=== PATIENT | male | born 1970 | race Caucasian/White ===

== ENCOUNTER 2016-06-22 15:16 | Emergency (ER) | payer OTHER ==
[~2016-06-22] VITALS: Ht 170.2 cm; Wt 77.3 kg
[~2016-06-22 15:16] MED LIST: TRAM50TA4 PO
[2016-06-22 15:23] VITALS: BP 152/95
[2016-06-22] MEDS ORDERED: LORA2TAB2 PO (15:33)
[2016-06-22] MEDS ORDERED: LORazepam 2 MG/ML VIAL IM ONE (19:15)
== END 2016-06-22 19:50 | disposition home or self-care (01) ==
LOC: EMS 15:21
DX: F19.239 Other psychoactive substance dependence with withdrawal, unspecified (principal); F41.9 Anxiety disorder, unspecified
CPT/HCPCS: 96372; 99283; J2060

== ENCOUNTER 2016-09-19 20:14 | Emergency (ER) | payer OTHER ==
[~2016-09-19] VITALS: Ht 170.2 cm; Wt 77.3 kg
[~2016-09-19 20:14] MED LIST changes: +LORA2TAB2 PO
[2016-09-19] MEDS ORDERED: LORazepam 2 MG TABLET PO ONE (22:30)
[2016-09-19 23:40] VITALS: BP 131/81
== END 2016-09-19 23:41 | disposition home or self-care (01) ==
LOC: EMS 20:16
DX: Z76.0 Encounter for issue of repeat prescription (principal); F41.9 Anxiety disorder, unspecified
CPT/HCPCS: 99283

== ENCOUNTER 2016-10-07 19:20 | Emergency (ER) | payer OTHER ==
[~2016-10-07] VITALS: Ht 170.2 cm; Wt 77.3 kg
[2016-10-07 20:07] VITALS: BP 100/81
[2016-10-07] MEDS ORDERED: TraMADol HCL 50 MG TABLET PO ONE (20:15)
== END 2016-10-07 20:40 | disposition home or self-care (01) ==
LOC: EMS 19:22
DX: Z76.0 Encounter for issue of repeat prescription (principal)
CPT/HCPCS: 99283

== ENCOUNTER 2016-11-01 16:05 | Emergency (ER) | payer OTHER ==
[~2016-11-01] VITALS: Ht 170.2 cm; Wt 77.3 kg
[2016-11-01] MEDS ORDERED: HYDROCODONE/ACETAMINOPHEN 5-325 MG TABLET PO ONE (18:45)
[2016-11-01 19:45] VITALS: BP 138/79
== END 2016-11-01 19:47 | disposition home or self-care (01) ==
LOC: EMS 16:06
DX: Z76.0 Encounter for issue of repeat prescription (principal); G89.29 Other chronic pain; M79.7 Fibromyalgia
CPT/HCPCS: 99283

== ENCOUNTER 2016-12-15 23:06 | Emergency (ER) | payer OTHER ==
[~2016-12-15] VITALS: Ht 170.2 cm; Wt 80.0 kg
[2016-12-15 23:10] VITALS: BP 139/99
[2016-12-16] MEDS ORDERED: LORazepam 2 MG TABLET PO ONE
== END 2016-12-16 00:19 | disposition home or self-care (01) ==
LOC: EMS 23:08
DX: F41.9 Anxiety disorder, unspecified (principal); Z76.0 Encounter for issue of repeat prescription
CPT/HCPCS: 99284

== ENCOUNTER 2016-12-25 01:39 | Emergency (ER) | payer OTHER ==
[~2016-12-25] VITALS: Ht 170.2 cm; Wt 81.5 kg
[~2016-12-25 01:39] MED LIST changes: -TRAM50TA4 PO
[2016-12-25] MEDS ORDERED: TRAM50TA4 PO (01:48)
[2016-12-25] MEDS ORDERED: LORA2TAB2 PO (01:48)
[2016-12-25] MEDS ORDERED: TraMADol HCL 50 MG TABLET PO ONE (04:00)
[2016-12-25 04:20] VITALS: BP 130/78
== END 2016-12-25 04:26 | disposition home or self-care (01) ==
LOC: EMS 01:40
DX: Z76.0 Encounter for issue of repeat prescription (principal); M79.7 Fibromyalgia; F41.9 Anxiety disorder, unspecified
CPT/HCPCS: 99283

== ENCOUNTER 2016-12-27 15:25 | Emergency (ER) | payer OTHER ==
[~2016-12-27] VITALS: Ht 170.2 cm; Wt 77.6 kg
[~2016-12-27 15:25] MED LIST changes: +TRAM50TA4 PO
[2016-12-27 16:02] VITALS: BP 136/87
[2016-12-27] MEDS ORDERED: TraMADol HCL 50 MG TABLET PO ONE (16:15)
== END 2016-12-27 16:25 | disposition home or self-care (01) ==
LOC: EMS 15:30
DX: M79.7 Fibromyalgia (principal); F41.9 Anxiety disorder, unspecified; Z76.0 Encounter for issue of repeat prescription
CPT/HCPCS: 99282

== ENCOUNTER 2017-03-15 07:36 | Emergency (ER) | payer OTHER ==
[~2017-03-15] VITALS: Ht 170.2 cm; Wt 77.3 kg
[2017-03-15 08:16] VITALS: BP 144/91
[2017-03-15] MEDS ORDERED: TraMADol HCL 50 MG TABLET PO ONE (09:00)
== END 2017-03-15 09:17 | disposition home or self-care (01) ==
LOC: EMS 07:38
DX: Z76.0 Encounter for issue of repeat prescription (principal); G89.29 Other chronic pain; F41.9 Anxiety disorder, unspecified; M79.7 Fibromyalgia
CPT/HCPCS: 99282

== ENCOUNTER 2017-07-18 07:35 | Emergency (ER) | payer OTHER ==
[~2017-07-18] VITALS: Ht 170.2 cm; Wt 77.3 kg
[2017-07-18 08:59] VITALS: BP 146/98
[2017-07-18] MEDS ORDERED: TraMADol HCL 50 MG TABLET PO ONE (09:00)
== END 2017-07-18 09:28 | disposition home or self-care (01) ==
LOC: EMS 07:36
DX: Z76.0 Encounter for issue of repeat prescription (principal); G89.29 Other chronic pain; K59.00 Constipation, unspecified; R42 Dizziness and giddiness; M79.7 Fibromyalgia; Z79.899 Other long term (current) drug therapy
CPT/HCPCS: 99283

== ENCOUNTER 2017-11-05 22:59 | Emergency (ER) | payer OTHER ==
[~2017-11-05] VITALS: Ht 175.3 cm; Wt 77.3 kg
[2017-11-06] MEDS ORDERED: LORazepam 1 MG TABLET PO ONE (03:00)
[2017-11-06 03:49] VITALS: BP 135/87
== END 2017-11-06 04:06 | disposition home or self-care (01) ==
LOC: EMS 23:00
DX: F41.1 Generalized anxiety disorder (principal); Z76.0 Encounter for issue of repeat prescription; M79.7 Fibromyalgia
CPT/HCPCS: 99284

== ENCOUNTER 2019-03-12 14:53 | Emergency (ER) | payer OTHER ==
[~2019-03-12] VITALS: Ht 170.2 cm; Wt 77.3 kg
[~2019-03-12 14:53] MED LIST changes: +LORA-1001 PO; -LORA2TAB2 PO
[2019-03-12] MEDS ORDERED: ChlordiazePOXIDE HCL 25 MG CAPSULE PO ONE (17:45)
[2019-03-12 18:40] VITALS: BP 235/83
== END 2019-03-12 18:45 | disposition home or self-care (01) ==
LOC: EMS 14:54
DX: F10.239 Alcohol dependence with withdrawal, unspecified (principal); I10 Essential (primary) hypertension; M79.7 Fibromyalgia; F41.9 Anxiety disorder, unspecified; Y90.9 Presence of alcohol in blood, level not specified

== ENCOUNTER 2019-06-03 18:14 | Emergency (ER) | payer OTHER ==
[~2019-06-03] VITALS: Ht 170.2 cm; Wt 72.7 kg
[2019-06-03] MEDS ORDERED: SODIUM CHLORIDE 0.9% 1,000 ML IV ONE (20:30)
[2019-06-03 20:38] LABS: BASOPHILS % (AUTO) 0.4 % (0.0-2.0); EOSINOPHILS % (AUTO) 1.4 % (1.0-6.0); HEMATOCRIT 40.6 % (41-53); HEMOGLOBIN 13.9 g/dL (13.5-17.5); LYMPHOCYTES # (AUTO) 2.2 K/uL (1.0-4.8); LYMPHOCYTES % (AUTO) 29.1 % (22.0-44.0); MEAN CORPUSCULAR HEMOGLOBIN 30.5 pg (26.0-34.0); MEAN CORPUSCULAR HGB CONC 34.4 G/dL (31.0-37.0); MEAN CORPUSCULAR VOLUME 89 fL (80-100); MONOCYTES # (AUTO) 0.6 K/uL (0.1-1.0); MONOCYTES % (AUTO) 8.2 % (2.0-9.0); NEUTROPHILS # (AUTO) 4.5 K/uL (1.8-7.7); NEUTROPHILS % (AUTO) 60.9 % (40.0-70.0); PLATELET COUNT (AUTO) 337 K/uL (150-450); RED BLOOD CELL COUNT(AUTO) 4.57 MIL/uL (4.50-5.90); RED CELL DISTRIBUTION WIDTH 13.7 % (11.5-14.5)
[2019-06-03 21:00] LABS: ANION GAP 4 mmol/L (8-16); CALCIUM, TOTAL 8.3 mg/dL (8.8-10.5); CARBON DIOXIDE 32 mmol/L (22-29); CHLORIDE 108 mmol/L (98-107); CREATININE 1.07 mg/dL (0.60-1.30); GLOMERULAR FILTR. RATE CALC > 60 mL/min (>60); GLUCOSE,RANDOM 102 mg/dL (70-110); POTASSIUM 4.5 mmol/L (3.5-5.1); SODIUM SERUM 144 mmol/L (136-145); UREA NITROGEN, BLOOD 9 mg/dL (7-18)
[2019-06-03] MEDS ORDERED: ChlordiazePOXIDE HCL 25 MG CAPSULE PO ONE (21:00)
[2019-06-03 21:05] LABS: ALANINE AMINOTRANSFERASE 34 U/L (12-78); ALBUMIN 3.2 g/dL (3.4-5.0); ALKALINE PHOSPHATASE 69 U/L (46-116); ASPARTATE AMINOTRANSFERASE 24 U/L (15-37); BILIRUBIN,TOTAL 0.1 mg/dL (0.1-1.0); TOTAL PROTEIN, SERUM 5.7 g/dL (6.4-8.2)
[2019-06-03 21:30] VITALS: BP 131/80
== END 2019-06-03 22:26 | disposition home or self-care (01) ==
LOC: EMS 18:15
DX: F10.239 Alcohol dependence with withdrawal, unspecified (principal); F41.9 Anxiety disorder, unspecified; I10 Essential (primary) hypertension; Y90.0 Blood alcohol level of less than 20 mg/100 ml
CPT/HCPCS: 36415; 80053; 85025; 99283; G0480

== ENCOUNTER 2019-07-02 04:35 | Emergency (ER) | payer OTHER ==
[~2019-07-02] VITALS: Ht 170.2 cm; Wt 79.1 kg
[2019-07-02] MEDS ORDERED: LORA-1000 PO (05:04)
[2019-07-02] MEDS ORDERED: TRAM50TA4 PO (05:04)
[2019-07-02 06:54] VITALS: BP 133/75
[2019-07-02] MEDS ORDERED: LORazepam 1 MG TABLET PO ONE (07:15)
== END 2019-07-02 08:00 | disposition home or self-care (01) ==
LOC: EMS 04:40
DX: F41.9 Anxiety disorder, unspecified (principal); I10 Essential (primary) hypertension

== ENCOUNTER 2020-03-26 16:42 | Emergency (ER) | payer OTHER ==
[~2020-03-26] VITALS: Ht 167.6 cm; Wt 72.7 kg
[~2020-03-26 16:42] MED LIST changes: +LORA-1000 PO; -LORA-1001 PO
[2020-03-26 16:56] VITALS: BP 132/103
[2020-03-26] MEDS ORDERED: BUSP5TAB20 PO (17:01)
[2020-03-26] MEDS ORDERED: VENL50TA44 PO (17:01)
== END 2020-03-26 17:54 | disposition home or self-care (01) ==
LOC: EMS 16:42
DX: F41.9 Anxiety disorder, unspecified (principal); Z76.0 Encounter for issue of repeat prescription; I10 Essential (primary) hypertension; Z79.899 Other long term (current) drug therapy
CPT/HCPCS: Z7502

== ENCOUNTER 2020-05-21 18:00 | Emergency (ER) | payer OTHER ==
[~2020-05-21] VITALS: Ht 167.6 cm; Wt 68.2 kg
[~2020-05-21 18:00] MED LIST changes: +BUSP5TAB20 PO; -TRAM50TA4 PO; +VENL50TA44 PO
[2020-05-21] MEDS ORDERED: LORazepam 2 MG TABLET PO ONE (23:45)
[2020-05-22 03:21] LABS: INFLUENZA TYPE A NEGATIVE FOR TYPE A (NEGATIVE); INFLUENZA TYPE B NEGATIVE FOR TYPE B (NEGATIVE)
[2020-05-22 03:49] VITALS: BP 135/71
== END 2020-05-22 03:51 | disposition home or self-care (01) ==
LOC: EMS 18:00
DX: F41.9 Anxiety disorder, unspecified (principal); Z20.828 Contact with and (suspected) exposure to other viral communicable diseases; I10 Essential (primary) hypertension; Z79.899 Other long term (current) drug therapy
CPT/HCPCS: 87804; 99283; U0003

== ENCOUNTER 2020-06-07 21:19 | Emergency (ER) | payer OTHER ==
[~2020-06-07] VITALS: Ht 170.2 cm; Wt 72.7 kg
[2020-06-07 21:27] VITALS: BP 103/77
[2020-06-08] MEDS ORDERED: TraMADol HCL 50 MG TABLET PO ONE
== END 2020-06-08 00:23 | disposition home or self-care (01) ==
LOC: EMS 21:19
DX: M79.7 Fibromyalgia (principal); Z76.0 Encounter for issue of repeat prescription

== ENCOUNTER 2021-06-13 17:03 | Emergency (ER) | payer OTHER ==
[~2021-06-13] VITALS: Ht 170.2 cm; Wt 66.4 kg
[2021-06-13 17:45] VITALS: BP 162/99
== END 2021-06-13 20:30 | disposition left against medical advice (07) ==
LOC: EMS 17:07
DX: F10.239 Alcohol dependence with withdrawal, unspecified (principal); Z53.21 Procedure and treatment not carried out due to patient leaving prior to being seen by health care provider

== ENCOUNTER 2021-10-17 12:54 | Emergency (ER) | payer OTHER ==
[~2021-10-17] VITALS: Ht 170.2 cm; Wt 71.0 kg
[2021-10-17 12:55] VITALS: BP 144/99
[2021-10-17] MEDS ORDERED: AMIT-166 PO (12:59)
== END 2021-10-17 14:35 | disposition left against medical advice (07) ==
LOC: EMS 12:59
DX: Z53.21 Procedure and treatment not carried out due to patient leaving prior to being seen by health care provider (principal)

== ENCOUNTER 2021-12-20 12:39 | Inpatient (IN) | payer MEDICAID, OTHER ==
[~2021-12-20] VITALS: Ht 170.2 cm; Wt 62.6 kg
[~2021-12-20 12:39] MED LIST changes: +AMIT-166 PO; -LORA-1000 PO
[2021-12-20 14:29] LABS: BASOPHILS % (AUTO) 0.4 % (0.0-2.0); EOSINOPHILS % (AUTO) 0.4 % (1.0-6.0); HEMATOCRIT 40.5 % (41-53); LYMPHOCYTES % (AUTO) 15.1 % (22.0-44.0); MEAN CORPUSCULAR HEMOGLOBIN 30.6 pg (26.0-34.0); MEAN CORPUSCULAR HGB CONC 34.6 G/dL (31.0-37.0); MEAN CORPUSCULAR VOLUME 89 fL (80-100); MONOCYTES # (AUTO) 0.4 K/uL (0.1-1.0); MONOCYTES % (AUTO) 5.7 % (2.0-9.0); NEUTROPHILS % (AUTO) 78.4 % (40.0-70.0); PLATELET COUNT (AUTO) 349 K/uL (150-450); RED BLOOD CELL COUNT(AUTO) 4.57 MIL/uL (4.50-5.90); RED CELL DISTRIBUTION WIDTH 13.5 % (11.5-14.5)
[2021-12-20 14:39] LABS: ANION GAP 6 mmol/L (8-16); CALCIUM, TOTAL 9.2 mg/dL (8.8-10.5); CARBON DIOXIDE 30 mmol/L (22-29); CHLORIDE 99 mmol/L (98-107); CREATININE 0.88 mg/dL (0.60-1.30); GLUCOSE,RANDOM 101 mg/dL (70-110); POTASSIUM 4.9 mmol/L (3.5-5.1); SODIUM SERUM 135 mmol/L (136-145); UREA NITROGEN, BLOOD 15 mg/dL (7-18)
[2021-12-20 14:41] LABS: GLOMERULAR FILTR. RATE CALC > 60 mL/min (>60)
[2021-12-20 14:45] LABS: ALANINE AMINOTRANSFERASE 27 U/L (12-78); ALBUMIN 3.4 g/dL (3.4-5.0); ALKALINE PHOSPHATASE 108 U/L (46-116); ASPARTATE AMINOTRANSFERASE 17 U/L (15-37); BILIRUBIN,TOTAL 0.3 mg/dL (0.1-1.0); TOTAL PROTEIN, SERUM 7.3 g/dL (6.4-8.2)
[2021-12-20] MEDS ORDERED: ZOLPIDEM TARTRATE 10 MG TABLET PO PRN (15:00)
[2021-12-20] MEDS ORDERED: QUEtiapine FUMARATE 100 MG TABLET PO PRN (15:00)
[2021-12-20 18:52] LABS: COVID AG,FIA SOURCE NASAL SWAB
[2021-12-20 20:10] VITALS: BP 107/77
[2021-12-20] MEDS ORDERED: PNEUMOCOCCAL VACCINE POLYVALENT 0.5 ML VIAL [PPSV23] IM. ONE (22:15)
[2021-12-21] MEDS ORDERED: PETROLATUM,WHITE 28 GM JELLY TP PRN (06:00)
[2021-12-21] MEDS ORDERED: CloNIDine HCL 0.1 MG TABLET PO PRN (06:00)
[2021-12-21] MEDS ORDERED: GuaiFENesin/D-METHORPHAN [SUGAR-FREE] 200-20MG/10 ML SYRUP UDCUP PO PRN (06:00)
[2021-12-21] MEDS ORDERED: ACETAMINOPHEN 325 MG TABLET PO PRN (06:00)
[2021-12-21] MEDS ORDERED: IBUPROFEN 400 MG TABLET PO PRN (06:00)
[2021-12-21] MEDS ORDERED: LOPERAMIDE HCL 2 MG CAPSULE PO PRN (06:00)
[2021-12-21] MEDS ORDERED: ONDANSETRON HCL 4 MG TABLET PO PRN (06:00)
[2021-12-21] MEDS ORDERED: DOCUSATE SODIUM 100 MG CAPSULE PO PRN (06:00)
[2021-12-21] MEDS ORDERED: MAG HYDROX/AL HYDROX/SIMETH ES 30 ML SUSPENSION UDCUP PO PRN (06:00)
[2021-12-21] MEDS ORDERED: ALBUTEROL SULFATE HFA 90 MCG/PUFF 8 GM INHALER IH PRN (06:00)
[2021-12-21] MEDS ORDERED: NICOTINE 14 MG/24 HOUR PATCH TD PRN (06:00)
[2021-12-21] MEDS ORDERED: MAGNESIUM HYDROXIDE SUSPENSION 30 ML UDCUP PO PRN (06:00)
[2021-12-21 08:46] VITALS: BP 114/68
[2021-12-21] MEDS: LORazepam 1 MG TABLET PO PRN ×2 (10:21→17:06)
[2021-12-21] MEDS: VENLAFAXINE HCL 50 MG TABLET PO SCH (14:04)
[2021-12-21] MEDS: BusPIRone HCL 5 MG TABLET PO SCH (16:24)
[2021-12-21 17:00] VITALS: BP 135/88
[2021-12-22 08:43] VITALS: BP 135/85
[2021-12-22] MEDS: BusPIRone HCL 5 MG TABLET PO SCH ×2 (09:00→16:48)
[2021-12-22] MEDS: VENLAFAXINE HCL 50 MG TABLET PO SCH (09:25)
[2021-12-22] MEDS: LORazepam 1 MG TABLET PO PRN ×2 (09:32→17:33)
[2021-12-22 16:00] VITALS: BP 137/90
[2021-12-22 17:33] VITALS: BP 142/89
[2021-12-22] MEDS: RisperiDONE 1 MG TABLET PO SCH (20:44)
[2021-12-23 08:25] VITALS: BP 142/91
[2021-12-23] MEDS: VENLAFAXINE HCL 50 MG TABLET PO SCH (08:33)
[2021-12-23] MEDS: LORazepam 1 MG TABLET PO PRN ×3 (08:33→20:54)
[2021-12-23] MEDS: BusPIRone HCL 5 MG TABLET PO SCH ×2 (08:37→16:52)
[2021-12-23 16:19] VITALS: BP 115/73
[2021-12-23 20:38] VITALS: BP 125/73
[2021-12-23] MEDS: RisperiDONE 1 MG TABLET PO SCH (20:54)
[2021-12-24 08:00] VITALS: BP 110/66
[2021-12-24] MEDS: LORazepam 1 MG TABLET PO PRN ×2 (08:53→15:05)
[2021-12-24] MEDS: VENLAFAXINE HCL 50 MG TABLET PO SCH (08:56)
[2021-12-24] MEDS: BusPIRone HCL 5 MG TABLET PO SCH ×2 (09:00→16:51)
[2021-12-24] MEDS ORDERED: VENL-67 PO (12:36)
[2021-12-24] MEDS ORDERED: GABA-1181 PO (12:36)
[2021-12-24] MEDS ORDERED: CLON0.5T4 PO (12:36)
[2021-12-24] MEDS ORDERED: LORA-999 PO (12:36)
[2021-12-24] MEDS ORDERED: SILD100T71 PO (12:36)
[2021-12-24] MEDS ORDERED: AMIT25TA9 PO (12:36)
[2021-12-24 16:51] VITALS: BP 112/78
[2021-12-24] MEDS: RisperiDONE 1 MG TABLET PO SCH (20:18)
[2021-12-25 08:02] VITALS: BP 100/66
[2021-12-25] MEDS: BusPIRone HCL 5 MG TABLET PO SCH ×2 (08:33→16:53)
[2021-12-25] MEDS: VENLAFAXINE HCL 50 MG TABLET PO SCH (08:33)
[2021-12-25] MEDS: LORazepam 1 MG TABLET PO PRN ×3 (08:39→17:16)
[2021-12-25 14:36] LABS: COVID AG,FIA SOURCE NASAL SWAB
[2021-12-25 16:24] VITALS: BP 139/69
[2021-12-25] MEDS ORDERED: RISP1TAB48 PO ×2 (18:49→21:42)
[2021-12-25] MEDS ORDERED: VENL50TA44 PO ×2 (18:49→21:42)
[2021-12-25] MEDS: RisperiDONE 1 MG TABLET PO SCH (20:22)
[2021-12-25] MEDS ORDERED: BUSP5TAB20 PO (21:42)
[2021-12-26] MEDS: LORazepam 1 MG TABLET PO PRN (06:58)
[2021-12-26 09:01] VITALS: BP 121/107
== END 2021-12-26 08:30 | disposition home or self-care (01) | DRG 750 ==
LOC: EMS 12:42 → 3EI 21:09
PROVIDERS: ADMIT Psychiatry & Neurology Psychiatry; ATTEND Psychiatry & Neurology Psychiatry
DX: F25.1 Schizoaffective disorder, depressive type (principal); E87.1 Hypo-osmolality and hyponatremia; R45.851 Suicidal ideations; F15.10 Other stimulant abuse, uncomplicated; Z20.822 Contact with and (suspected) exposure to COVID-19; F41.9 Anxiety disorder, unspecified; I10 Essential (primary) hypertension; M79.7 Fibromyalgia; R45.850 Homicidal ideations; Z59.00 Homelessness unspecified; Z79.899 Other long term (current) drug therapy
CPT/HCPCS: 80053; 85025; 99285; G0480

== ENCOUNTER 2022-03-03 18:43 | Inpatient (IN) | payer MEDICAID ==
[~2022-03-03] VITALS: Ht 170.2 cm; Wt 66.3 kg
[~2022-03-03 18:43] MED LIST changes: -AMIT-166 PO; +RISP1TAB48 PO
[2022-03-03] MEDS ORDERED: LOPERAMIDE HCL 2 MG CAPSULE PO PRN (19:00)
[2022-03-03] MEDS ORDERED: TUBERCULIN, PURIFIED PROTEIN DERIVATIVE 5 TU/0.1 ML SYRINGE ID ONE (19:00)
[2022-03-03] MEDS ORDERED: MAG HYDROX/AL HYDROX/SIMETH ES 30 ML SUSPENSION UDCUP PO PRN (19:00)
[2022-03-03] MEDS ORDERED: PROMETHAZINE HCL 25 MG TABLET PO PRN (19:00)
[2022-03-03] MEDS ORDERED: ACETAMINOPHEN 325 MG TABLET PO PRN (19:00)
[2022-03-03] MEDS ORDERED: HydrOXYzine PAMOATE 50 MG CAPSULE PO PRN (19:00)
[2022-03-03] MEDS ORDERED: GuaiFENesin/D-METHORPHAN [SUGAR-FREE] 200-20MG/10 ML SYRUP UDCUP PO PRN (19:00)
[2022-03-03] MEDS ORDERED: OLANZapine 5 MG RAPDIS TABLET PO PRN (19:00)
[2022-03-03] MEDS ORDERED: MAGNESIUM HYDROXIDE SUSPENSION 30 ML UDCUP PO PRN (19:00)
[2022-03-03] MEDS ORDERED: INFLUENZA VIRUS VACCINE QVS 2022-23 (6MO+)/PF 60 MCG/0.5 ML SYRINGE IM. ONE (19:30)
[2022-03-03] MEDS ORDERED: PNEUMOCOCCAL VACCINE POLYVALENT 0.5 ML VIAL [PPSV23] IM. ONE (19:30)
[2022-03-03 19:36] LABS: GLUCOMETER DEV NAME(LOC) POC.BV
[2022-03-03 20:33] VITALS: BP 136/83
[2022-03-03] MEDS: GABAPENTIN 300 MG CAPSULE PO SCH (21:15)
[2022-03-03] MEDS: OLANZapine 5 MG RAPDIS TABLET PO SCH (21:15)
[2022-03-03] MEDS: MELATONIN 5 MG TABLET PO SCH (21:15)
[2022-03-03] MEDS: LORazepam 2 MG TABLET PO PRN (21:22)
[2022-03-04 07:13] LABS: EOSINOPHILS % (AUTO) 2.5 % (1.0-6.0); HEMATOCRIT 37.7 % (41-53); HEMOGLOBIN 12.6 g/dL (13.5-17.5); LYMPHOCYTES # (AUTO) 1.3 K/uL (1.0-4.8); LYMPHOCYTES % (AUTO) 32.7 % (22.0-44.0); MEAN CORPUSCULAR HEMOGLOBIN 30.3 pg (26.0-34.0); MEAN CORPUSCULAR HGB CONC 33.4 G/dL (31.0-37.0); MEAN CORPUSCULAR VOLUME 91 fL (80-100); MONOCYTES # (AUTO) 0.6 K/uL (0.1-1.0); MONOCYTES % (AUTO) 14.8 % (2.0-9.0); PLATELET COUNT (AUTO) 326 K/uL (150-450); RED BLOOD CELL COUNT(AUTO) 4.15 MIL/uL (4.50-5.90)
[2022-03-04 07:28] LABS: HEMOGLOBIN A1C 5.5 % (3.8-5.6)
[2022-03-04 07:37] LABS: ALANINE AMINOTRANSFERASE 28 U/L (12-78); ALKALINE PHOSPHATASE 80 U/L (46-116); ANION GAP 2 mmol/L (8-16); ASPARTATE AMINOTRANSFERASE 17 U/L (15-37); BILIRUBIN,TOTAL 0.2 mg/dL (0.1-1.0); CALCIUM, TOTAL 8.4 mg/dL (8.8-10.5); CARBON DIOXIDE 30 mmol/L (22-29); CHLORIDE 107 mmol/L (98-107); CHOL/HDL RATIO 2.6 (4.2-7.3); CHOLESTEROL 156 mg/dL (131-200); CREATININE 0.97 mg/dL (0.60-1.30); FREE T4 (FREE THYROXINE) 0.74 ng/dL (0.76-1.46); GLUCOSE,RANDOM 99 mg/dL (70-110); HDL CHOLESTEROL 59 mg/dL (40-60); LDL CHOL (CALC.) 82 mg/dL (0-130); POTASSIUM 3.9 mmol/L (3.5-5.1); SODIUM SERUM 139 mmol/L (136-145); THYROID STIMULATING HORMONE 1.36 uIU/mL (0.36-3.74); TRIGLYCERIDES 75 mg/dL (15-150); UREA NITROGEN, BLOOD 8 mg/dL (7-18)
[2022-03-04 07:47] LABS: GLOMERULAR FILTR. RATE CALC > 60 mL/min (>60)
[2022-03-04] MEDS: OMEGA-3/DHA/EPA/FISH OIL 1,000 MG CAPSULE PO SCH (08:17)
[2022-03-04] MEDS: NALTREXONE HCL 50 MG TABLET PO SCH (08:17)
[2022-03-04] MEDS: GABAPENTIN 300 MG CAPSULE PO SCH ×4 (08:17→20:19)
[2022-03-04] MEDS: FOLIC ACID 1 MG TABLET PO SCH (08:17)
[2022-03-04] MEDS: MULTIVITAMINS WITH MINERALS, THERAPEUTIC TABLET PO SCH (08:17)
[2022-03-04] MEDS: THIAMINE 100 MG TABLET PO SCH ×2 (08:18→16:19)
[2022-03-04 08:56] VITALS: BP 180/91
[2022-03-04] MEDS ORDERED: DULoxetine HCL 20 MG CAPSULE PO SCH (09:00)
[2022-03-04] MEDS ORDERED: PALIPERIDONE PALMITATE 234 MG/1.5 ML SYRINGE IM ONE (09:00)
[2022-03-04] MEDS: LORazepam 2 MG TABLET PO PRN ×2 (11:52→16:19)
[2022-03-04] MEDS: OLANZapine 5 MG RAPDIS TABLET PO SCH (20:19)
[2022-03-04] MEDS: MELATONIN 5 MG TABLET PO SCH (20:19)
[2022-03-04 20:37] VITALS: BP 133/92
[2022-03-05 08:32] VITALS: BP 109/76
[2022-03-05] MEDS: MULTIVITAMINS WITH MINERALS, THERAPEUTIC TABLET PO SCH (08:48)
[2022-03-05] MEDS: FOLIC ACID 1 MG TABLET PO SCH (08:48)
[2022-03-05] MEDS: THIAMINE 100 MG TABLET PO SCH ×2 (08:48→17:02)
[2022-03-05] MEDS: GABAPENTIN 300 MG CAPSULE PO SCH ×4 (08:48→20:10)
[2022-03-05] MEDS: OMEGA-3/DHA/EPA/FISH OIL 1,000 MG CAPSULE PO SCH (08:48)
[2022-03-05] MEDS: NALTREXONE HCL 50 MG TABLET PO SCH (08:48)
[2022-03-05] MEDS ORDERED: BuPROPion HCL XL 150 MG ER TABLET PO SCH (09:00)
[2022-03-05] MEDS: LORazepam 2 MG TABLET PO PRN (12:22)
[2022-03-05] MEDS: MELATONIN 5 MG TABLET PO SCH (20:10)
[2022-03-05] MEDS: OLANZapine 10 MG RAPDIS TABLET PO SCH (20:10)
[2022-03-05 20:27] VITALS: BP 110/61
[2022-03-06 08:14] VITALS: BP 131/78
[2022-03-06] MEDS ORDERED: BuPROPion HCL XL 150 MG ER TABLET PO SCH (09:00)
[2022-03-06] MEDS: FOLIC ACID 1 MG TABLET PO SCH (09:33)
[2022-03-06] MEDS: THIAMINE 100 MG TABLET PO SCH ×2 (09:34→16:27)
[2022-03-06] MEDS: MULTIVITAMINS WITH MINERALS, THERAPEUTIC TABLET PO SCH (09:34)
[2022-03-06] MEDS: GABAPENTIN 300 MG CAPSULE PO SCH ×2 (09:34→13:00)
[2022-03-06] MEDS: OMEGA-3/DHA/EPA/FISH OIL 1,000 MG CAPSULE PO SCH (09:34)
[2022-03-06] MEDS: NALTREXONE HCL 50 MG TABLET PO SCH (09:34)
[2022-03-06] MEDS: LORazepam 2 MG TABLET PO PRN ×2 (13:08→20:15)
[2022-03-06] MEDS: GABAPENTIN 400 MG CAPSULE PO SCH ×2 (16:26→20:12)
[2022-03-06] MEDS: MELATONIN 5 MG TABLET PO SCH (20:12)
[2022-03-06] MEDS: OLANZapine 10 MG RAPDIS TABLET PO SCH (20:12)
[2022-03-06 20:44] VITALS: BP 117/79
[2022-03-07 08:30] VITALS: BP 107/70
[2022-03-07] MEDS: MULTIVITAMINS WITH MINERALS, THERAPEUTIC TABLET PO SCH (09:05)
[2022-03-07] MEDS: THIAMINE 100 MG TABLET PO SCH ×2 (09:05→17:15)
[2022-03-07] MEDS: OMEGA-3/DHA/EPA/FISH OIL 1,000 MG CAPSULE PO SCH (09:05)
[2022-03-07] MEDS: BuPROPion HCL XL 150 MG ER TABLET PO SCH (09:06)
[2022-03-07] MEDS: GABAPENTIN 400 MG CAPSULE PO SCH ×2 (09:06→12:12)
[2022-03-07] MEDS: FOLIC ACID 1 MG TABLET PO SCH (09:06)
[2022-03-07] MEDS: NALTREXONE HCL 50 MG TABLET PO SCH (09:07)
[2022-03-07] MEDS: LORazepam 2 MG TABLET PO PRN (11:56)
[2022-03-07] MEDS ORDERED: GABAPENTIN 300 MG CAPSULE PO PRN (16:15)
[2022-03-07] MEDS: GABAPENTIN 100 MG CAPSULE PO SCH ×2 (17:15→21:54)
[2022-03-07] MEDS: MELATONIN 5 MG TABLET PO SCH (21:53)
[2022-03-07] MEDS: OLANZapine 10 MG RAPDIS TABLET PO SCH (21:53)
[2022-03-08] VITALS: BP 111/72
[2022-03-08] MEDS ORDERED: PALIPERIDONE PALMITATE 156 MG/ML SYRINGE IM ONE (09:00)
[2022-03-08 09:05] VITALS: BP 116/66
[2022-03-08] MEDS: FOLIC ACID 1 MG TABLET PO SCH (11:00)
[2022-03-08] MEDS: BuPROPion HCL XL 150 MG ER TABLET PO SCH (11:00)
[2022-03-08] MEDS: OMEGA-3/DHA/EPA/FISH OIL 1,000 MG CAPSULE PO SCH (11:00)
[2022-03-08] MEDS: MULTIVITAMINS WITH MINERALS, THERAPEUTIC TABLET PO SCH (11:01)
[2022-03-08] MEDS: THIAMINE 100 MG TABLET PO SCH ×2 (11:01→16:47)
[2022-03-08] MEDS: NALTREXONE HCL 50 MG TABLET PO SCH (11:01)
[2022-03-08] MEDS: GABAPENTIN 100 MG CAPSULE PO SCH ×4 (11:01→20:29)
[2022-03-08 20:06] VITALS: BP 114/79
[2022-03-08] MEDS: MELATONIN 5 MG TABLET PO SCH (20:28)
[2022-03-08] MEDS: OLANZapine 10 MG RAPDIS TABLET PO SCH (20:29)
[2022-03-09 08:37] VITALS: BP 118/68
[2022-03-09 09:21] LABS: GLUCOMETER DEV NAME(LOC) POC.BV
[2022-03-09] MEDS: FOLIC ACID 1 MG TABLET PO SCH (10:35)
[2022-03-09] MEDS: GABAPENTIN 100 MG CAPSULE PO SCH ×4 (10:35→20:54)
[2022-03-09] MEDS: BusPIRone HCL 10 MG TABLET PO SCH ×2 (10:35→17:47)
[2022-03-09] MEDS: OMEGA-3/DHA/EPA/FISH OIL 1,000 MG CAPSULE PO SCH (10:35)
[2022-03-09] MEDS: NALTREXONE HCL 50 MG TABLET PO SCH (10:36)
[2022-03-09] MEDS: MULTIVITAMINS WITH MINERALS, THERAPEUTIC TABLET PO SCH (10:36)
[2022-03-09] MEDS: THIAMINE 100 MG TABLET PO SCH ×2 (10:36→17:47)
[2022-03-09] MEDS: BuPROPion HCL XL 150 MG ER TABLET PO SCH (10:37)
[2022-03-09] MEDS: OLANZapine 10 MG RAPDIS TABLET PO SCH (20:54)
[2022-03-09] MEDS: MELATONIN 5 MG TABLET PO SCH (20:54)
[2022-03-09 23:30] VITALS: BP 120/78
[2022-03-10 08:30] VITALS: BP 110/71
[2022-03-10] MEDS: GABAPENTIN 100 MG CAPSULE PO SCH ×3 (10:31→17:04)
[2022-03-10] MEDS: BuPROPion HCL XL 150 MG ER TABLET PO SCH (10:32)
[2022-03-10] MEDS: FOLIC ACID 1 MG TABLET PO SCH (10:32)
[2022-03-10] MEDS: MULTIVITAMINS WITH MINERALS, THERAPEUTIC TABLET PO SCH (10:32)
[2022-03-10] MEDS: THIAMINE 100 MG TABLET PO SCH ×2 (10:32→17:04)
[2022-03-10] MEDS: OMEGA-3/DHA/EPA/FISH OIL 1,000 MG CAPSULE PO SCH (10:32)
[2022-03-10] MEDS: BusPIRone HCL 10 MG TABLET PO SCH ×2 (10:33→17:04)
[2022-03-10] MEDS: NALTREXONE HCL 50 MG TABLET PO SCH (10:33)
[2022-03-10 20:45] VITALS: BP 129/81
[2022-03-10] MEDS: MELATONIN 5 MG TABLET PO SCH (21:56)
[2022-03-10] MEDS: GABAPENTIN 300 MG CAPSULE PO SCH (21:56)
[2022-03-10] MEDS: OLANZapine 10 MG RAPDIS TABLET PO SCH (21:57)
[2022-03-11 08:59] VITALS: BP 118/78
[2022-03-11] MEDS: FOLIC ACID 1 MG TABLET PO SCH ×2 (09:00→09:54)
[2022-03-11] MEDS: GABAPENTIN 300 MG CAPSULE PO SCH ×3 (09:00→12:38)
[2022-03-11] MEDS: THIAMINE 100 MG TABLET PO SCH ×3 (09:00→17:05)
[2022-03-11] MEDS: MULTIVITAMINS WITH MINERALS, THERAPEUTIC TABLET PO SCH ×2 (09:00→09:55)
[2022-03-11] MEDS: BusPIRone HCL 10 MG TABLET PO SCH ×3 (09:00→17:06)
[2022-03-11] MEDS: OMEGA-3/DHA/EPA/FISH OIL 1,000 MG CAPSULE PO SCH ×2 (09:00→09:55)
[2022-03-11] MEDS: BuPROPion HCL XL 150 MG ER TABLET PO SCH ×2 (09:00→09:55)
[2022-03-11] MEDS: NALTREXONE HCL 50 MG TABLET PO SCH ×2 (09:00→09:55)
[2022-03-11] MEDS: GABAPENTIN 400 MG CAPSULE PO SCH ×2 (17:06→20:21)
[2022-03-11] MEDS: OLANZapine 5 MG RAPDIS TABLET PO SCH (20:21)
[2022-03-11] MEDS: MELATONIN 5 MG TABLET PO SCH (20:21)
[2022-03-11 20:51] VITALS: BP 124/65
[2022-03-12 08:38] VITALS: BP 124/69
[2022-03-12] MEDS: BuPROPion HCL XL 150 MG ER TABLET PO SCH (09:25)
[2022-03-12] MEDS: THIAMINE 100 MG TABLET PO SCH ×2 (09:26→17:05)
[2022-03-12] MEDS: FOLIC ACID 1 MG TABLET PO SCH (09:26)
[2022-03-12] MEDS: GABAPENTIN 400 MG CAPSULE PO SCH ×4 (09:26→20:15)
[2022-03-12] MEDS: BusPIRone HCL 10 MG TABLET PO SCH (09:26)
[2022-03-12] MEDS: NALTREXONE HCL 50 MG TABLET PO SCH (09:26)
[2022-03-12] MEDS: OMEGA-3/DHA/EPA/FISH OIL 1,000 MG CAPSULE PO SCH (09:27)
[2022-03-12] MEDS: MULTIVITAMINS WITH MINERALS, THERAPEUTIC TABLET PO SCH (09:27)
[2022-03-12] MEDS: BusPIRone HCL 15 MG TABLET PO SCH (17:05)
[2022-03-12] MEDS: OLANZapine 5 MG RAPDIS TABLET PO SCH (20:15)
[2022-03-12] MEDS: MELATONIN 5 MG TABLET PO SCH (20:15)
[2022-03-12 20:37] VITALS: BP 120/67
[2022-03-13 08:27] VITALS: BP 114/70
[2022-03-13] MEDS: BuPROPion HCL XL 150 MG ER TABLET PO SCH (09:00)
[2022-03-13] MEDS: BusPIRone HCL 15 MG TABLET PO SCH ×2 (09:40→16:51)
[2022-03-13] MEDS: OMEGA-3/DHA/EPA/FISH OIL 1,000 MG CAPSULE PO SCH (09:41)
[2022-03-13] MEDS: NALTREXONE HCL 50 MG TABLET PO SCH (09:41)
[2022-03-13] MEDS: FOLIC ACID 1 MG TABLET PO SCH (09:42)
[2022-03-13] MEDS: MULTIVITAMINS WITH MINERALS, THERAPEUTIC TABLET PO SCH (09:42)
[2022-03-13] MEDS: THIAMINE 100 MG TABLET PO SCH ×2 (09:42→16:51)
[2022-03-13] MEDS: GABAPENTIN 400 MG CAPSULE PO SCH ×4 (09:42→20:38)
[2022-03-13] MEDS: MELATONIN 5 MG TABLET PO SCH (20:38)
[2022-03-13] MEDS: OLANZapine 5 MG RAPDIS TABLET PO SCH (20:38)
[2022-03-13 21:34] VITALS: BP 113/67
[2022-03-14] MEDS ORDERED: PARoxetine HCL 20 MG TABLET PO SCH (09:00)
[2022-03-14] MEDS: NALTREXONE HCL 50 MG TABLET PO SCH (09:06)
[2022-03-14] MEDS: MULTIVITAMINS WITH MINERALS, THERAPEUTIC TABLET PO SCH (09:07)
[2022-03-14] MEDS: GABAPENTIN 400 MG CAPSULE PO SCH ×4 (09:07→20:33)
[2022-03-14] MEDS: BusPIRone HCL 15 MG TABLET PO SCH ×2 (09:07→17:10)
[2022-03-14] MEDS: OMEGA-3/DHA/EPA/FISH OIL 1,000 MG CAPSULE PO SCH (09:07)
[2022-03-14 09:36] VITALS: BP 113/69
[2022-03-14 20:00] VITALS: BP 109/66
[2022-03-14] MEDS: OLANZapine 5 MG RAPDIS TABLET PO SCH (20:33)
[2022-03-14] MEDS: MELATONIN 5 MG TABLET PO SCH (20:33)
[2022-03-15 08:55] VITALS: BP 117/72
[2022-03-15] MEDS: OMEGA-3/DHA/EPA/FISH OIL 1,000 MG CAPSULE PO SCH (09:17)
[2022-03-15] MEDS: NALTREXONE HCL 50 MG TABLET PO SCH (09:17)
[2022-03-15] MEDS: GABAPENTIN 400 MG CAPSULE PO SCH ×4 (09:18→20:25)
[2022-03-15] MEDS: MULTIVITAMINS WITH MINERALS, THERAPEUTIC TABLET PO SCH (09:18)
[2022-03-15] MEDS: PARoxetine HCL 10 MG TABLET PO SCH (09:18)
[2022-03-15] MEDS: BusPIRone HCL 15 MG TABLET PO SCH ×2 (09:18→17:00)
[2022-03-15] MEDS: MELATONIN 5 MG TABLET PO SCH (20:25)
[2022-03-15] MEDS: OLANZapine 5 MG RAPDIS TABLET PO SCH (20:25)
[2022-03-15 20:33] VITALS: BP 107/76
[2022-03-16 08:43] VITALS: BP 108/60
[2022-03-16 09:36] LABS: GLUCOMETER DEV NAME(LOC) POC.BV
[2022-03-16] MEDS: OMEGA-3/DHA/EPA/FISH OIL 1,000 MG CAPSULE PO SCH (09:38)
[2022-03-16] MEDS: GABAPENTIN 400 MG CAPSULE PO SCH ×4 (09:38→20:52)
[2022-03-16] MEDS: PARoxetine HCL 10 MG TABLET PO SCH (09:39)
[2022-03-16] MEDS: BusPIRone HCL 15 MG TABLET PO SCH ×2 (09:39→17:04)
[2022-03-16] MEDS: NALTREXONE HCL 50 MG TABLET PO SCH (09:39)
[2022-03-16] MEDS: MULTIVITAMINS WITH MINERALS, THERAPEUTIC TABLET PO SCH (09:39)
[2022-03-16 20:18] VITALS: BP 106/64
[2022-03-16] MEDS: MELATONIN 5 MG TABLET PO SCH (20:52)
[2022-03-16] MEDS: OLANZapine 5 MG RAPDIS TABLET PO SCH (20:53)
[2022-03-16 23:21] LABS: GLUCOMETER DEV NAME(LOC) POC.BV
[2022-03-17] MEDS: OMEGA-3/DHA/EPA/FISH OIL 1,000 MG CAPSULE PO SCH (08:41)
[2022-03-17] MEDS: BusPIRone HCL 15 MG TABLET PO SCH (08:41)
[2022-03-17] MEDS: MULTIVITAMINS WITH MINERALS, THERAPEUTIC TABLET PO SCH (08:41)
[2022-03-17] MEDS: NALTREXONE HCL 50 MG TABLET PO SCH (08:41)
[2022-03-17] MEDS: PARoxetine HCL 10 MG TABLET PO SCH (08:41)
[2022-03-17] MEDS: GABAPENTIN 400 MG CAPSULE PO SCH ×2 (08:42→12:04)
[2022-03-17 08:53] VITALS: BP 109/66
[2022-03-17] MEDS ORDERED: BUSP15 PO (09:34)
[2022-03-17] MEDS ORDERED: MELA5TAB40 PO (09:34)
[2022-03-17] MEDS ORDERED: NALT50TA PO (09:34)
[2022-03-17] MEDS ORDERED: PARO10TA71 PO (09:34)
[2022-03-17] MEDS ORDERED: OMEG-135 PO (09:34)
[2022-03-17] MEDS ORDERED: GABA-1201 PO (09:34)
[2022-03-17] MEDS ORDERED: OLAN5TAB94 PO (09:34)
== END 2022-03-17 13:35 | disposition home or self-care (01) | DRG 750 ==
LOC: B2S 19:23
PROVIDERS: ADMIT Psychiatry & Neurology Psychiatry; ATTEND Psychiatry & Neurology Psychiatry
DX: F25.1 Schizoaffective disorder, depressive type (principal); E44.1 Mild protein-calorie malnutrition; D64.9 Anemia, unspecified; I10 Essential (primary) hypertension; J44.9 Chronic obstructive pulmonary disease, unspecified; M79.7 Fibromyalgia; Z20.822 Contact with and (suspected) exposure to COVID-19; R45.88 Nonsuicidal self-harm; Z68.22 Body mass index [BMI] 22.0-22.9, adult; Z59.02 Unsheltered homelessness; Z74.01 Bed confinement status; Z79.899 Other long term (current) drug therapy; Z87.891 Personal history of nicotine dependence; Z91.51 Personal history of suicidal behavior
CPT/HCPCS: 80053; 80061; 83036; 84439; 84443; 85025; 86592; Q9967

== ENCOUNTER 2022-06-21 11:10 | Emergency (ER) | payer MEDICAID, OTHER ==
[~2022-06-21] VITALS: Ht 170.2 cm; Wt 72.7 kg
[~2022-06-21 11:10] MED LIST changes: +BUSP15 PO; -BUSP5TAB20 PO; +GABA-1201 PO; +MELA5TAB40 PO; +NALT50TA PO; +OLAN5TAB94 PO; +OMEG-135 PO; +PARO10TA71 PO; -RISP1TAB48 PO; -VENL50TA44 PO
[2022-06-21 13:16] VITALS: BP 126/76
[2022-06-21] MEDS ORDERED: LORazepam 1 MG TABLET PO ONE (13:30)
== END 2022-06-21 13:30 | disposition home or self-care (01) ==
LOC: EMS 11:31
DX: F41.9 Anxiety disorder, unspecified (principal); M79.7 Fibromyalgia
CPT/HCPCS: 99283

== ENCOUNTER 2022-06-28 15:27 | Emergency (ER) | payer OTHER ==
[~2022-06-28] VITALS: Ht 170.2 cm; Wt 72.7 kg
[2022-06-28] MEDS ORDERED: LORA-1000 PO (15:35)
[2022-06-28] MEDS ORDERED: BUSP10TA23 PO (15:35)
[2022-06-28] MEDS ORDERED: VENL-68 PO (15:35)
[2022-06-28 15:53] VITALS: BP 103/84
[2022-06-28] MEDS ORDERED: HYDR-4808 PO (16:18)
[2022-06-28] MEDS ORDERED: CARI-493 PO (16:18)
[2022-06-28] MEDS ORDERED: VENL-67 PO (16:22)
[2022-06-28] MEDS ORDERED: GABA-1181 PO (16:22)
[2022-06-28] MEDS ORDERED: TADA10TA14 PO (16:22)
[2022-06-28] MEDS ORDERED: CARISOPRODOL 350 MG TABLET PO ONE (16:30)
== END 2022-06-28 16:33 | disposition home or self-care (01) ==
LOC: EMS 15:27
DX: F41.9 Anxiety disorder, unspecified (principal); F32.9 Major depressive disorder, single episode, unspecified; M79.7 Fibromyalgia
CPT/HCPCS: 99283

== ENCOUNTER 2022-07-28 17:21 | Emergency (ER) | payer OTHER ==
[~2022-07-28] VITALS: Ht 170.2 cm; Wt 71.8 kg
[~2022-07-28 17:21] MED LIST changes: +BUSP10TA23 PO; -BUSP15 PO; +CARI-493 PO; +GABA-1181 PO; -GABA-1201 PO; +HYDR-4808 PO; +LORA-1000 PO; -MELA5TAB40 PO; -NALT50TA PO; -OLAN5TAB94 PO; -OMEG-135 PO; -PARO10TA71 PO; +TADA10TA14 PO; +VENL-67 PO; +VENL-68 PO
[2022-07-28 17:27] VITALS: BP 115/89
[2022-07-28] MEDS ORDERED: LORazepam 1 MG TABLET PO ONE (20:00)
== END 2022-07-29 00:45 | disposition home or self-care (01) ==
LOC: EMS 17:28
DX: F41.9 Anxiety disorder, unspecified (principal); M79.7 Fibromyalgia
CPT/HCPCS: 99283

== ENCOUNTER 2022-07-31 17:58 | Emergency (ER) | payer OTHER ==
[~2022-07-31] VITALS: Ht 170.2 cm; Wt 71.8 kg
[~2022-07-31 17:58] MED LIST changes: -CARI-493 PO; -GABA-1181 PO; -HYDR-4808 PO; -LORA-1000 PO; -TADA10TA14 PO; -VENL-67 PO
[2022-07-31] MEDS ORDERED: LORazepam 1 MG TABLET PO ONE (21:00)
[2022-07-31 21:45] VITALS: BP 121/69
== END 2022-07-31 22:04 | disposition home or self-care (01) ==
LOC: EMS 17:59
DX: F41.9 Anxiety disorder, unspecified (principal); M79.7 Fibromyalgia; F17.210 Nicotine dependence, cigarettes, uncomplicated
CPT/HCPCS: 99283

== ENCOUNTER 2022-08-03 09:41 | Emergency (ER) | payer OTHER ==
[~2022-08-03] VITALS: Ht 170.2 cm; Wt 75.0 kg
[2022-08-03] MEDS ORDERED: LORazepam 1 MG TABLET PO ONE (11:15)
[2022-08-03 12:00] VITALS: BP 133/93
== END 2022-08-03 12:13 | disposition home or self-care (01) ==
LOC: EMS 09:43
DX: F41.9 Anxiety disorder, unspecified (principal); M79.7 Fibromyalgia
CPT/HCPCS: 99283

== ENCOUNTER 2022-08-07 18:37 | Emergency (ER) | payer MEDICAID, OTHER ==
[~2022-08-07] VITALS: Ht 170.2 cm; Wt 71.8 kg
[2022-08-07] MEDS ORDERED: LORA-999 PO (19:53)
[2022-08-07] MEDS ORDERED: HYDR-3831 PO (19:53)
[2022-08-07 22:10] VITALS: BP 125/71
[2022-08-07] MEDS ORDERED: LORazepam 1 MG TABLET PO ONE (22:15)
[2022-08-11] MEDS ORDERED: VENL-67 PO (15:54)
[2022-08-11] MEDS ORDERED: GABA-1181 PO (15:54)
[2022-08-11] MEDS ORDERED: HYDR-4808 PO (15:54)
[2022-08-11] MEDS ORDERED: SILD100T71 PO (15:54)
== END 2022-08-08 00:11 | disposition home or self-care (01) ==
LOC: EMS 18:37
DX: F41.9 Anxiety disorder, unspecified (principal); M79.7 Fibromyalgia
CPT/HCPCS: 93005; 99283

== ENCOUNTER 2022-08-12 13:56 | Inpatient (IN) | payer MEDICAID, OTHER ==
[~2022-08-12] VITALS: Ht 170.2 cm; Wt 71.9 kg
[~2022-08-12 13:56] MED LIST changes: +GABA-1181 PO; +HYDR-4808 PO; +SILD100T71 PO; +VENL-67 PO; -VENL-68 PO
[2022-08-12 16:05] LABS: BASOPHILS % (AUTO) 0.5 % (0.0-2.0); EOSINOPHILS % (AUTO) 0.9 % (1.0-6.0); HEMATOCRIT 44.2 % (41-53); LYMPHOCYTES % (AUTO) 20.7 % (22.0-44.0); MEAN CORPUSCULAR HEMOGLOBIN 30.2 pg (26.0-34.0); MEAN CORPUSCULAR VOLUME 89 fL (80-100); MONOCYTES # (AUTO) 0.7 K/uL (0.1-1.0); MONOCYTES % (AUTO) 6.8 % (2.0-9.0); NEUTROPHILS # (AUTO) 6.8 K/uL (1.8-7.7); NEUTROPHILS % (AUTO) 71.1 % (40.0-70.0); PLATELET COUNT (AUTO) 436 K/uL (150-450); RED BLOOD CELL COUNT(AUTO) 4.96 MIL/uL (4.50-5.90); RED CELL DISTRIBUTION WIDTH 14.5 % (11.5-14.5)
[2022-08-12 16:14] LABS: ANION GAP 5 mmol/L (8-16); CALCIUM, TOTAL 9.2 mg/dL (8.8-10.5); CARBON DIOXIDE 32 mmol/L (22-29); CHLORIDE 105 mmol/L (98-107); CREATININE 1.12 mg/dL (0.60-1.30); GLOMERULAR FILTR. RATE CALC > 60 mL/min (>60); GLUCOSE,RANDOM 109 mg/dL (70-110); POTASSIUM 4.7 mmol/L (3.5-5.1); SODIUM SERUM 142 mmol/L (136-145); UREA NITROGEN, BLOOD 21 mg/dL (7-18)
[2022-08-12 16:20] LABS: ALANINE AMINOTRANSFERASE 22 U/L (12-78); ALBUMIN 3.9 g/dL (3.4-5.0); ALKALINE PHOSPHATASE 98 U/L (46-116); ASPARTATE AMINOTRANSFERASE 21 U/L (15-37); BILIRUBIN,TOTAL 0.2 mg/dL (0.1-1.0); TOTAL PROTEIN, SERUM 7.5 g/dL (6.4-8.2)
[2022-08-12 16:26] LABS: COVID AG,FIA SOURCE NASOPHARYNGEAL
[2022-08-12] MEDS ORDERED: HALOPERIDOL 5 MG TABLET PO PRN (20:00)
[2022-08-12 21:58] VITALS: BP 135/99
[2022-08-12] MEDS ORDERED: INFLUENZA VIRUS VACCINE QVS 2022-23 (6MO+)/PF 60 MCG/0.5 ML SYRINGE IM. ONE (22:15)
[2022-08-13] MEDS ORDERED: ACETAMINOPHEN 325 MG TABLET PO PRN (06:15)
[2022-08-13] MEDS ORDERED: IBUPROFEN 400 MG TABLET PO PRN (06:15)
[2022-08-13] MEDS ORDERED: NICOTINE 14 MG/24 HOUR PATCH TD PRN (06:15)
[2022-08-13] MEDS ORDERED: ONDANSETRON HCL 4 MG TABLET PO PRN (06:15)
[2022-08-13] MEDS ORDERED: GuaiFENesin/D-METHORPHAN [SUGAR-FREE] 200-20MG/10 ML SYRUP UDCUP PO PRN (06:15)
[2022-08-13] MEDS ORDERED: ALBUTEROL SULFATE HFA 90 MCG/PUFF 8 GM INHALER IH PRN (06:15)
[2022-08-13] MEDS ORDERED: PETROLATUM,WHITE 28 GM JELLY TP PRN (06:15)
[2022-08-13] MEDS ORDERED: LOPERAMIDE HCL 2 MG CAPSULE PO PRN (06:15)
[2022-08-13] MEDS ORDERED: MAG HYDROX/AL HYDROX/SIMETH ES 30 ML SUSPENSION UDCUP PO PRN (06:15)
[2022-08-13] MEDS ORDERED: DOCUSATE SODIUM 100 MG CAPSULE PO PRN (06:15)
[2022-08-13] MEDS ORDERED: CloNIDine HCL 0.1 MG TABLET PO PRN (06:15)
[2022-08-13] MEDS ORDERED: MAGNESIUM HYDROXIDE SUSPENSION 30 ML UDCUP PO PRN (06:15)
[2022-08-13 08:27] VITALS: BP 141/75
[2022-08-13] MEDS: GABAPENTIN 300 MG CAPSULE PO SCH ×3 (08:58→16:40)
[2022-08-13] MEDS: LORazepam 2 MG TABLET PO PRN ×2 (13:16→21:34)
[2022-08-13] MEDS: BusPIRone HCL 10 MG TABLET PO SCH (16:40)
[2022-08-13] MEDS: RisperiDONE 1 MG TABLET PO SCH (16:40)
[2022-08-13 20:19] VITALS: BP 123/68
[2022-08-13] MEDS: ZOLPIDEM TARTRATE 10 MG TABLET PO PRN (21:34)
[2022-08-14] MEDS: VENLAFAXINE HCL 75 MG ER CAPSULE PO SCH (08:17)
[2022-08-14] MEDS: GABAPENTIN 300 MG CAPSULE PO SCH ×3 (08:17→16:23)
[2022-08-14] MEDS: RisperiDONE 1 MG TABLET PO SCH ×2 (08:17→16:23)
[2022-08-14] MEDS: BusPIRone HCL 10 MG TABLET PO SCH ×2 (08:18→16:23)
[2022-08-14 08:40] VITALS: BP 107/66
[2022-08-14] MEDS: LORazepam 2 MG TABLET PO PRN ×2 (14:19→20:38)
[2022-08-14 20:22] VITALS: BP 108/99
[2022-08-14] MEDS: ZOLPIDEM TARTRATE 10 MG TABLET PO PRN (20:41)
[2022-08-15 08:21] VITALS: BP 116/77
[2022-08-15] MEDS: RisperiDONE 1 MG TABLET PO SCH ×2 (08:30→16:15)
[2022-08-15] MEDS: GABAPENTIN 300 MG CAPSULE PO SCH ×3 (08:30→16:15)
[2022-08-15] MEDS: VENLAFAXINE HCL 75 MG ER CAPSULE PO SCH (08:31)
[2022-08-15] MEDS: BusPIRone HCL 10 MG TABLET PO SCH ×2 (08:31→16:15)
[2022-08-15] MEDS: LORazepam 2 MG TABLET PO PRN ×2 (12:00→23:24)
[2022-08-15 20:20] VITALS: BP 112/94
[2022-08-15] MEDS: ZOLPIDEM TARTRATE 10 MG TABLET PO PRN (23:24)
[2022-08-16 08:16] VITALS: BP 109/64
[2022-08-16] MEDS: GABAPENTIN 300 MG CAPSULE PO SCH ×3 (08:39→16:32)
[2022-08-16] MEDS: BusPIRone HCL 10 MG TABLET PO SCH ×2 (08:39→16:32)
[2022-08-16] MEDS: VENLAFAXINE HCL 75 MG ER CAPSULE PO SCH (08:39)
[2022-08-16] MEDS: RisperiDONE 1 MG TABLET PO SCH ×2 (08:40→16:32)
[2022-08-16] MEDS: LORazepam 2 MG TABLET PO PRN ×2 (13:55→21:29)
[2022-08-16 20:34] VITALS: BP 134/65
[2022-08-17 08:43] VITALS: BP 116/71
[2022-08-17] MEDS: RisperiDONE 1 MG TABLET PO SCH ×2 (09:13→17:31)
[2022-08-17] MEDS: BusPIRone HCL 10 MG TABLET PO SCH ×2 (09:13→17:31)
[2022-08-17] MEDS: VENLAFAXINE HCL 75 MG ER CAPSULE PO SCH (09:13)
[2022-08-17] MEDS: GABAPENTIN 300 MG CAPSULE PO SCH ×3 (09:13→17:31)
[2022-08-17] MEDS: LORazepam 2 MG TABLET PO PRN ×3 (09:13→19:57)
[2022-08-17 20:30] VITALS: BP 106/64
[2022-08-17] MEDS: ZOLPIDEM TARTRATE 10 MG TABLET PO PRN (20:53)
[2022-08-18] MEDS: VENLAFAXINE HCL 75 MG ER CAPSULE PO SCH (08:24)
[2022-08-18] MEDS: GABAPENTIN 300 MG CAPSULE PO SCH ×3 (08:25→16:06)
[2022-08-18] MEDS: BusPIRone HCL 10 MG TABLET PO SCH ×2 (08:25→16:06)
[2022-08-18] MEDS: RisperiDONE 1 MG TABLET PO SCH ×2 (08:25→16:06)
[2022-08-18 09:07] VITALS: BP 106/68
[2022-08-18] MEDS ORDERED: VENL-67 PO (10:47)
[2022-08-18] MEDS ORDERED: BUSP10TA23 PO (10:47)
[2022-08-18] MEDS ORDERED: RISP1TAB98 PO (10:47)
[2022-08-18] MEDS ORDERED: GABA-1181 PO (10:47)
[2022-08-18 11:56] LABS: GLUCOMETER DEV NAME(LOC) POC.BV
== END 2022-08-18 18:18 | disposition home or self-care (01) | DRG 750 ==
LOC: EMS 13:58 → B2S 20:23
PROVIDERS: ADMIT Psychiatry & Neurology Child & Adolescent Psychiatry; ATTEND Psychiatry & Neurology Child & Adolescent Psychiatry
DX: F25.9 Schizoaffective disorder, unspecified (principal); R45.851 Suicidal ideations; F41.9 Anxiety disorder, unspecified; Z20.822 Contact with and (suspected) exposure to COVID-19
CPT/HCPCS: 80053; 85025; 99285; G0480

== ENCOUNTER 2022-10-05 19:18 | Emergency (ER) | payer MEDICAID, OTHER ==
[~2022-10-05] VITALS: Ht 170.2 cm; Wt 70.5 kg
[~2022-10-05 19:18] MED LIST changes: -HYDR-4808 PO; +RISP1TAB98 PO; -SILD100T71 PO
[2022-10-05 19:22] VITALS: BP 145/92
[2022-10-05] MEDS ORDERED: LORazepam 2 MG TABLET PO ONE (19:45)
[2022-10-05 20:08] LABS: BASOPHILS % (AUTO) 0.7 % (0.0-2.0); EOSINOPHILS % (AUTO) 2.1 % (1.0-6.0); HEMOGLOBIN 12.8 g/dL (13.5-17.5); LYMPHOCYTES # (AUTO) 1.6 K/uL (1.0-4.8); LYMPHOCYTES % (AUTO) 28.6 % (22.0-44.0); MEAN CORPUSCULAR HEMOGLOBIN 30.3 pg (26.0-34.0); MEAN CORPUSCULAR HGB CONC 33.6 G/dL (31.0-37.0); MEAN CORPUSCULAR VOLUME 90 fL (80-100); MONOCYTES # (AUTO) 0.5 K/uL (0.1-1.0); MONOCYTES % (AUTO) 9.3 % (2.0-9.0); NEUTROPHILS # (AUTO) 3.2 K/uL (1.8-7.7); NEUTROPHILS % (AUTO) 59.3 % (40.0-70.0); PLATELET COUNT (AUTO) 374 K/uL (150-450); RED BLOOD CELL COUNT(AUTO) 4.21 MIL/uL (4.50-5.90); RED CELL DISTRIBUTION WIDTH 13.6 % (11.5-14.5)
[2022-10-05 20:20] LABS: ANION GAP 6 mmol/L (8-16); CALCIUM, TOTAL 8.2 mg/dL (8.8-10.5); CARBON DIOXIDE 30 mmol/L (22-29); CHLORIDE 101 mmol/L (98-107); GLOMERULAR FILTR. RATE CALC > 60 mL/min (>60); GLUCOSE,RANDOM 103 mg/dL (70-110); POTASSIUM 4.1 mmol/L (3.5-5.1); SODIUM SERUM 137 mmol/L (136-145)
[2022-10-05 20:26] LABS: ALANINE AMINOTRANSFERASE 24 U/L (12-78); ALBUMIN 3.5 g/dL (3.4-5.0); ALKALINE PHOSPHATASE 86 U/L (46-116); ASPARTATE AMINOTRANSFERASE 26 U/L (15-37); BILIRUBIN,TOTAL 0.2 mg/dL (0.1-1.0); LIPASE 103 U/L (73-393); TOTAL PROTEIN, SERUM 6.9 g/dL (6.4-8.2)
[2022-10-05] MEDS ORDERED: LORA-1000 PO (20:31)
== END 2022-10-05 20:54 | disposition home or self-care (01) ==
LOC: EMS 19:18
DX: R07.89 Other chest pain (principal); F41.0 Panic disorder [episodic paroxysmal anxiety]; F43.22 Adjustment disorder with anxiety; M79.7 Fibromyalgia
CPT/HCPCS: 80053; 83690; 84484; 85025; 93005; 99284

== ENCOUNTER 2022-10-20 14:47 | Inpatient (IN) | payer MEDICAID, OTHER ==
[~2022-10-20] VITALS: Ht 167.6 cm; Wt 68.0 kg
[~2022-10-20 14:47] MED LIST changes: +LORA-1000 PO
[2022-10-20] MEDS ORDERED: CARBAMIDE PEROXIDE 6.5% 15 ML OTIC SOLUTION AD ONE (17:45)
[2022-10-20 17:59] LABS: EOSINOPHILS % (AUTO) 1.4 % (1.0-6.0); HEMATOCRIT 41.9 % (41-53); LYMPHOCYTES # (AUTO) 1.6 K/uL (1.0-4.8); LYMPHOCYTES % (AUTO) 31.7 % (22.0-44.0); MEAN CORPUSCULAR HEMOGLOBIN 30.9 pg (26.0-34.0); MEAN CORPUSCULAR HGB CONC 33.5 G/dL (31.0-37.0); MEAN CORPUSCULAR VOLUME 92 fL (80-100); MONOCYTES # (AUTO) 0.4 K/uL (0.1-1.0); MONOCYTES % (AUTO) 8.3 % (2.0-9.0); NEUTROPHILS # (AUTO) 2.8 K/uL (1.8-7.7); NEUTROPHILS % (AUTO) 57.6 % (40.0-70.0); PLATELET COUNT (AUTO) 350 K/uL (150-450); RED BLOOD CELL COUNT(AUTO) 4.55 MIL/uL (4.50-5.90); RED CELL DISTRIBUTION WIDTH 13.6 % (11.5-14.5)
[2022-10-20 18:08] LABS: ANION GAP 8 mmol/L (8-16); CALCIUM, TOTAL 9.1 mg/dL (8.8-10.5); CARBON DIOXIDE 30 mmol/L (22-29); CHLORIDE 103 mmol/L (98-107); CREATININE 0.96 mg/dL (0.60-1.30); GLOMERULAR FILTR. RATE CALC > 60 mL/min (>60); GLUCOSE,RANDOM 89 mg/dL (70-110); POTASSIUM 4.4 mmol/L (3.5-5.1); SODIUM SERUM 141 mmol/L (136-145)
[2022-10-20 18:13] LABS: ALANINE AMINOTRANSFERASE 24 U/L (12-78); ALBUMIN 3.9 g/dL (3.4-5.0); ALKALINE PHOSPHATASE 80 U/L (46-116); ASPARTATE AMINOTRANSFERASE 20 U/L (15-37); BILIRUBIN,TOTAL 0.3 mg/dL (0.1-1.0); TOTAL PROTEIN, SERUM 7.6 g/dL (6.4-8.2)
[2022-10-20 19:04] LABS: AMPHET/METH SCREEN,URINE POSITIVE (NEGATIVE); BARBITURATE SCREEN, URINE NEGATIVE (NEGATIVE); BENZODIAZEPINES SCREEN,URINE NEGATIVE (NEGATIVE); CANNABINOID SCREEN,URINE NEGATIVE (NEGATIVE); COCAINE SCREEN,URINE NEGATIVE (NEGATIVE); METHADONE SCREEN, URINE NEGATIVE (NEGATIVE); OPIATE SCREEN,URINE NEGATIVE (NEGATIVE); PHENCYCLIDINE SCREEN,URINE NEGATIVE (NEGATIVE)
[2022-10-20 20:58] LABS: COVID AG,FIA SOURCE NASOPHARYNGEAL
[2022-10-21] MEDS ORDERED: ZOLPIDEM TARTRATE 10 MG TABLET PO PRN (02:00)
[2022-10-21] MEDS ORDERED: HALOPERIDOL 5 MG TABLET PO PRN (02:00)
[2022-10-21 02:51] VITALS: BP 137/90
[2022-10-21] MEDS ORDERED: HydrOXYzine PAMOATE 50 MG CAPSULE PO PRN (09:15)
[2022-10-21] MEDS ORDERED: GuaiFENesin/D-METHORPHAN [SUGAR-FREE] 200-20MG/10 ML SYRUP UDCUP PO PRN (09:15)
[2022-10-21] MEDS ORDERED: MAGNESIUM HYDROXIDE SUSPENSION 30 ML UDCUP PO PRN (09:15)
[2022-10-21] MEDS ORDERED: ACETAMINOPHEN 325 MG TABLET PO PRN (09:15)
[2022-10-21] MEDS ORDERED: LOPERAMIDE HCL 2 MG CAPSULE PO PRN (09:15)
[2022-10-21] MEDS ORDERED: TUBERCULIN, PURIFIED PROTEIN DERIVATIVE 5 TU/0.1 ML SYRINGE ID ONE (09:15)
[2022-10-21] MEDS ORDERED: OLANZapine 5 MG RAPDIS TABLET PO PRN (09:15)
[2022-10-21] MEDS ORDERED: MAG HYDROX/AL HYDROX/SIMETH ES 30 ML SUSPENSION UDCUP PO PRN (09:15)
[2022-10-21] MEDS ORDERED: PROMETHAZINE HCL 25 MG TABLET PO PRN (09:15)
[2022-10-21] MEDS: LORazepam 2 MG TABLET PO PRN ×2 (10:25→16:47)
[2022-10-21] MEDS ORDERED: PALIPERIDONE PALMITATE 234 MG/1.5 ML SYRINGE IM ONE (11:00)
[2022-10-21 12:20] VITALS: BP 137/82
[2022-10-21] MEDS: THIAMINE 100 MG TABLET PO SCH (16:20)
[2022-10-21] MEDS: MELATONIN 5 MG TABLET PO SCH (20:30)
[2022-10-21 20:56] VITALS: BP 124/74
[2022-10-21] MEDS ORDERED: OLANZapine 5 MG RAPDIS TABLET PO SCH (21:00)
[2022-10-22 07:13] LABS: HEMOGLOBIN A1C 5.1 % (3.8-5.6)
[2022-10-22 07:50] LABS: CHOL/HDL RATIO 2.9 (4.2-7.3); FREE T4 (FREE THYROXINE) 0.82 ng/dL (0.76-1.46); THYROID STIMULATING HORMONE 0.53 uIU/mL (0.36-3.74)
[2022-10-22] MEDS ORDERED: VENLAFAXINE HCL 75 MG ER CAPSULE PO SCH (09:00)
[2022-10-22] MEDS ORDERED: FLUoxetine HCL 20 MG CAPSULE PO SCH (09:00)
[2022-10-22] MEDS: FOLIC ACID 1 MG TABLET PO SCH (09:12)
[2022-10-22] MEDS: NALTREXONE HCL 50 MG TABLET PO SCH (09:12)
[2022-10-22] MEDS: THIAMINE 100 MG TABLET PO SCH ×2 (09:12→16:19)
[2022-10-22] MEDS: BusPIRone HCL 10 MG TABLET PO SCH ×2 (09:12→16:19)
[2022-10-22] MEDS: OMEGA-3/DHA/EPA/FISH OIL 1,000 MG CAPSULE PO SCH (09:12)
[2022-10-22] MEDS: MULTIVITAMINS WITH MINERALS, THERAPEUTIC TABLET PO SCH (09:12)
[2022-10-22] MEDS: LORazepam 2 MG TABLET PO PRN ×3 (09:24→20:32)
[2022-10-22 10:29] VITALS: BP 142/80
[2022-10-22] MEDS: OLANZapine 10 MG RAPDIS TABLET PO SCH (20:21)
[2022-10-22] MEDS: MELATONIN 5 MG TABLET PO SCH (20:21)
[2022-10-22 20:43] VITALS: BP 110/66
[2022-10-23] MEDS: MULTIVITAMINS WITH MINERALS, THERAPEUTIC TABLET PO SCH (08:35)
[2022-10-23] MEDS: OMEGA-3/DHA/EPA/FISH OIL 1,000 MG CAPSULE PO SCH (08:35)
[2022-10-23] MEDS: NALTREXONE HCL 50 MG TABLET PO SCH (08:35)
[2022-10-23] MEDS: FOLIC ACID 1 MG TABLET PO SCH (08:35)
[2022-10-23] MEDS: THIAMINE 100 MG TABLET PO SCH ×2 (08:35→16:20)
[2022-10-23] MEDS: VENLAFAXINE HCL 150 MG ER CAPSULE PO SCH (08:36)
[2022-10-23] MEDS: BusPIRone HCL 10 MG TABLET PO SCH ×2 (08:36→16:20)
[2022-10-23] MEDS: LORazepam 2 MG TABLET PO PRN ×3 (08:47→20:03)
[2022-10-23 09:29] VITALS: BP 112/60
[2022-10-23 20:26] VITALS: BP 95/59
[2022-10-23] MEDS: MELATONIN 5 MG TABLET PO SCH (20:40)
[2022-10-23] MEDS: OLANZapine 10 MG RAPDIS TABLET PO SCH (20:40)
[2022-10-24 08:00] VITALS: BP 119/62
[2022-10-24] MEDS: FOLIC ACID 1 MG TABLET PO SCH (10:46)
[2022-10-24] MEDS: THIAMINE 100 MG TABLET PO SCH ×2 (10:46→16:05)
[2022-10-24] MEDS: MULTIVITAMINS WITH MINERALS, THERAPEUTIC TABLET PO SCH (10:46)
[2022-10-24] MEDS: VENLAFAXINE HCL 150 MG ER CAPSULE PO SCH (10:46)
[2022-10-24] MEDS: BusPIRone HCL 10 MG TABLET PO SCH ×2 (10:46→16:06)
[2022-10-24] MEDS: NALTREXONE HCL 50 MG TABLET PO SCH (10:46)
[2022-10-24] MEDS: OMEGA-3/DHA/EPA/FISH OIL 1,000 MG CAPSULE PO SCH (10:47)
[2022-10-24] MEDS: LORazepam 2 MG TABLET PO PRN (10:47)
[2022-10-24] MEDS ORDERED: BUSP10TA23 PO (16:19)
[2022-10-24] MEDS ORDERED: NALT50TA PO (16:19)
[2022-10-24] MEDS ORDERED: OMEG-135 PO (16:19)
[2022-10-24] MEDS ORDERED: OLAN10TA26 PO (16:19)
[2022-10-24] MEDS ORDERED: VENL150C4 PO (16:19)
[2022-10-24] MEDS ORDERED: MELA5TAB40 PO (16:19)
[2022-10-25] MEDS ORDERED: PALIPERIDONE PALMITATE 156 MG/ML SYRINGE IM ONE (09:00)
== END 2022-10-24 18:07 | disposition home or self-care (01) | DRG 750 ==
LOC: EMS 14:50 → 3EI 10-21 00:30
PROVIDERS: ADMIT Psychiatry & Neurology Psychiatry; ATTEND Psychiatry & Neurology Psychiatry
DX: F25.9 Schizoaffective disorder, unspecified (principal); G93.41 Metabolic encephalopathy; R45.851 Suicidal ideations; Z91.148 Patient's other noncompliance with medication regimen for other reason; Z20.822 Contact with and (suspected) exposure to COVID-19; F17.200 Nicotine dependence, unspecified, uncomplicated; F32.9 Major depressive disorder, single episode, unspecified; H61.21 Impacted cerumen, right ear; M79.7 Fibromyalgia; J44.9 Chronic obstructive pulmonary disease, unspecified; Z81.8 Family history of other mental and behavioral disorders; Z79.899 Other long term (current) drug therapy
CPT/HCPCS: 80053; 80061; 80307; 83036; 84439; 84443; 85025; 86592; 87081; 99285; G0480; Q9967

== ENCOUNTER 2022-10-25 10:00 | Emergency (ER) | payer MEDICAID, OTHER ==
[~2022-10-25] VITALS: Ht 170.2 cm; Wt 70.5 kg
[~2022-10-25 10:00] MED LIST changes: -GABA-1181 PO; -LORA-1000 PO; +MELA5TAB40 PO; +NALT50TA PO; +OLAN10TA26 PO; +OMEG-135 PO; -RISP1TAB98 PO; -VENL-67 PO; +VENL150C4 PO
[2022-10-25] MEDS ORDERED: LORazepam 1 MG TABLET PO ONE (11:15)
[2022-10-25 11:26] VITALS: BP 144/91
== END 2022-10-25 11:58 | disposition home or self-care (01) ==
LOC: EMS 10:09
DX: F41.9 Anxiety disorder, unspecified (principal); F32.A Depression, unspecified; M79.7 Fibromyalgia
CPT/HCPCS: 71045; 93005; 99283

== ENCOUNTER 2022-11-10 12:51 | Emergency (ER) | payer OTHER ==
[~2022-11-10] VITALS: Ht 170.2 cm; Wt 71.8 kg
[~2022-11-10 12:51] MED LIST changes: -MELA5TAB40 PO; -NALT50TA PO; -OLAN10TA26 PO; -OMEG-135 PO; -VENL150C4 PO
[2022-11-10 13:00] VITALS: BP 141/94; PULSE 95; RESP 18; TEMP 98.6
[2022-11-10] MEDS ORDERED: LORazepam 2 MG TABLET PO ONE (13:45)
[2022-11-10] MEDS ORDERED: OLAN5TAB52 PO (13:47)
[2022-11-10] MEDS ORDERED: VENL-68 PO (13:47)
== END 2022-11-10 14:07 | disposition home or self-care (01) ==
LOC: EMS 12:58
DX: F41.9 Anxiety disorder, unspecified (principal); F32.A Depression, unspecified; M79.7 Fibromyalgia
CPT/HCPCS: 99283

== ENCOUNTER 2022-11-13 14:43 | Inpatient (IN) | payer MEDICAID, OTHER ==
[~2022-11-13] VITALS: Ht 170.2 cm; Wt 73.8 kg
[~2022-11-13 14:43] MED LIST changes: -BUSP10TA23 PO; +OLAN5TAB52 PO; +VENL-68 PO
[2022-11-13 16:06] LABS: GLUCOMETER DEV NAME(LOC) POC.BV
[2022-11-13] MEDS ORDERED: HydrOXYzine PAMOATE 50 MG CAPSULE PO PRN (16:15)
[2022-11-13] MEDS ORDERED: PROMETHAZINE HCL 25 MG TABLET PO PRN (16:15)
[2022-11-13] MEDS ORDERED: TUBERCULIN, PURIFIED PROTEIN DERIVATIVE 5 TU/0.1 ML SYRINGE ID ONE (16:15)
[2022-11-13] MEDS ORDERED: LOPERAMIDE HCL 2 MG CAPSULE PO PRN (16:15)
[2022-11-13] MEDS ORDERED: ACETAMINOPHEN 325 MG TABLET PO PRN (16:15)
[2022-11-13] MEDS ORDERED: ZOLPIDEM TARTRATE 10 MG TABLET PO PRN (16:15)
[2022-11-13] MEDS ORDERED: PALIPERIDONE PALMITATE 234 MG/1.5 ML SYRINGE IM ONE (16:15)
[2022-11-13] MEDS ORDERED: MAGNESIUM HYDROXIDE SUSPENSION 30 ML UDCUP PO PRN (16:15)
[2022-11-13] MEDS ORDERED: GuaiFENesin/D-METHORPHAN [SUGAR-FREE] 200-20MG/10 ML SYRUP UDCUP PO PRN (16:15)
[2022-11-13] MEDS ORDERED: OLANZapine 5 MG RAPDIS TABLET PO PRN (16:15)
[2022-11-13] MEDS ORDERED: MAG HYDROX/AL HYDROX/SIMETH ES 30 ML SUSPENSION UDCUP PO PRN (16:15)
[2022-11-13 16:19] VITALS: BP 122/82; PULSE 79; RESP 18; TEMP 98.1
[2022-11-13 17:00] VITALS: BP 130/83; PULSE 72; RESP 18; TEMP 97.7; O2SAT 100
[2022-11-13] MEDS: LORazepam 2 MG TABLET PO PRN (17:36)
[2022-11-13] MEDS: THIAMINE 100 MG TABLET PO SCH (17:36)
[2022-11-13] MEDS ORDERED: MELATONIN 5 MG TABLET PO SCH (21:00)
[2022-11-13] MEDS ORDERED: OLANZapine 5 MG RAPDIS TABLET PO SCH (21:00)
[2022-11-13 21:03] VITALS: BP 96/61; PULSE 86; RESP 17; TEMP 98.1; O2SAT 98
[2022-11-13] MEDS: GABAPENTIN 300 MG CAPSULE PO SCH (21:16)
[2022-11-14 08:16] VITALS: BP 126/88; PULSE 79; RESP 18; TEMP 97.5; O2SAT 99
[2022-11-14] MEDS: THIAMINE 100 MG TABLET PO SCH ×2 (08:17→16:34)
[2022-11-14] MEDS: GABAPENTIN 300 MG CAPSULE PO SCH ×3 (08:17→16:34)
[2022-11-14 08:50] LABS: BASOPHILS % (AUTO) 0.3 % (0.0-2.0); EOSINOPHILS % (AUTO) 4.6 % (1.0-6.0); HEMATOCRIT 38.4 % (41-53); HEMOGLOBIN 12.8 g/dL (13.5-17.5); LYMPHOCYTES # (AUTO) 1.3 K/uL (1.0-4.8); LYMPHOCYTES % (AUTO) 32.2 % (22.0-44.0); MEAN CORPUSCULAR HEMOGLOBIN 30.2 pg (26.0-34.0); MEAN CORPUSCULAR HGB CONC 33.3 G/dL (31.0-37.0); MEAN CORPUSCULAR VOLUME 91 fL (80-100); MONOCYTES # (AUTO) 0.3 K/uL (0.1-1.0); MONOCYTES % (AUTO) 8.4 % (2.0-9.0); NEUTROPHILS # (AUTO) 2.2 K/uL (1.8-7.7); NEUTROPHILS % (AUTO) 54.5 % (40.0-70.0); PLATELET COUNT (AUTO) 308 K/uL (150-450); RED BLOOD CELL COUNT(AUTO) 4.23 MIL/uL (4.50-5.90); RED CELL DISTRIBUTION WIDTH 13.7 % (11.5-14.5)
[2022-11-14] MEDS ORDERED: FLUoxetine HCL 20 MG CAPSULE PO SCH (09:00)
[2022-11-14] MEDS ORDERED: NALTREXONE HCL 50 MG TABLET PO SCH (09:00)
[2022-11-14] MEDS ORDERED: FOLIC ACID 1 MG TABLET PO SCH (09:00)
[2022-11-14] MEDS ORDERED: MULTIVITAMINS WITH MINERALS, THERAPEUTIC TABLET PO SCH (09:00)
[2022-11-14] MEDS ORDERED: OMEGA-3/DHA/EPA/FISH OIL 1,000 MG CAPSULE PO SCH (09:00)
[2022-11-14 09:07] LABS: ALANINE AMINOTRANSFERASE 115 U/L (12-78); ALKALINE PHOSPHATASE 90 U/L (46-116); ANION GAP 8 mmol/L (8-16); ASPARTATE AMINOTRANSFERASE 38 U/L (15-37); BILIRUBIN,TOTAL 0.3 mg/dL (0.1-1.0); CALCIUM, TOTAL 8.2 mg/dL (8.8-10.5); CARBON DIOXIDE 29 mmol/L (22-29); CHLORIDE 105 mmol/L (98-107); CHOL/HDL RATIO 3.5 (4.2-7.3); CHOLESTEROL 225 mg/dL (131-200); CREATININE 0.83 mg/dL (0.60-1.30); GLOMERULAR FILTR. RATE CALC > 60 mL/min (>60); GLUCOSE,RANDOM 85 mg/dL (70-110); HDL CHOLESTEROL 65 mg/dL (40-60); LDL CHOL (CALC.) 147 mg/dL (0-130); POTASSIUM 4.2 mmol/L (3.5-5.1); SODIUM SERUM 142 mmol/L (136-145); TOTAL PROTEIN, SERUM 6.5 g/dL (6.4-8.2); TRIGLYCERIDES 64 mg/dL (15-150)
[2022-11-14 09:46] LABS: HEMOGLOBIN A1C 5.4 % (3.8-5.6)
[2022-11-14] MEDS: LORazepam 2 MG TABLET PO PRN ×2 (10:16→16:06)
[2022-11-14] MEDS ORDERED: BUSP10TA3 PO (14:49)
[2022-11-14] MEDS ORDERED: OLAN10TA22 PO (14:49)
[2022-11-14] MEDS ORDERED: VENL150T PO (14:49)
[2022-11-14] MEDS ORDERED: NALT50TA PO ×2 (14:49→16:25)
[2022-11-14] MEDS ORDERED: BUPR-50 PO (16:25)
[2022-11-14] MEDS ORDERED: ZOLPIDEM TARTRATE 10 MG TABLET PO SCH (21:00)
[2022-11-15] MEDS ORDERED: VENLAFAXINE HCL 150 MG ER CAPSULE PO SCH (09:00)
[2022-11-17] MEDS ORDERED: PALIPERIDONE PALMITATE 156 MG/ML SYRINGE IM ONE (09:00)
== END 2022-11-14 17:45 | disposition left against medical advice (07) | DRG 750 ==
LOC: B2S 16:27
PROVIDERS: ADMIT Psychiatry & Neurology Psychiatry; ATTEND Psychiatry & Neurology Psychiatry
DX: F25.9 Schizoaffective disorder, unspecified (principal); F15.10 Other stimulant abuse, uncomplicated; Z20.822 Contact with and (suspected) exposure to COVID-19; Z53.29 Procedure and treatment not carried out because of patient's decision for other reasons; F60.0 Paranoid personality disorder; G47.00 Insomnia, unspecified; K59.00 Constipation, unspecified; J44.9 Chronic obstructive pulmonary disease, unspecified; Z55.9 Problems related to education and literacy, unspecified; Z59.9 Problem related to housing and economic circumstances, unspecified; Z63.9 Problem related to primary support group, unspecified; Z65.3 Problems related to other legal circumstances; Z81.8 Family history of other mental and behavioral disorders; Z72.0 Tobacco use; Z71.6 Tobacco abuse counseling
CPT/HCPCS: 80053; 80061; 83036; 85025; 86592; 87081; Q9967

== ENCOUNTER 2023-02-04 19:18 | Inpatient (IN) | payer MEDICAID ==
[~2023-02-04] VITALS: Ht 170.2 cm; Wt 66.3 kg
[~2023-02-04 19:18] MED LIST changes: +BUPR-50 PO; +NALT50TA PO; -OLAN5TAB52 PO; -VENL-68 PO
[2023-02-04] MEDS ORDERED: HALOPERIDOL 5 MG TABLET PO PRN (20:30)
[2023-02-04 20:31] LABS: GLUCOMETER DEV NAME(LOC) POC.BV; POC SARS-COV2 AG, FIA NEGATIVE (NEGATIVE)
[2023-02-05 01:45] VITALS: BP 136/96; PULSE 79; RESP 18; TEMP 97.5; O2SAT 98
[2023-02-05] MEDS: LORazepam 2 MG TABLET PO PRN ×3 (02:05→21:07)
[2023-02-05] MEDS ORDERED: IBUPROFEN 600 MG TABLET PO PRN (06:00)
[2023-02-05] MEDS ORDERED: CloNIDine HCL 0.1 MG TABLET PO PRN (06:00)
[2023-02-05] MEDS ORDERED: MAGNESIUM HYDROXIDE SUSPENSION 30 ML UDCUP PO PRN (06:00)
[2023-02-05] MEDS ORDERED: OMEPRAZOLE 20 MG CAPSULE PO PRN (06:00)
[2023-02-05] MEDS ORDERED: ACETAMINOPHEN 325 MG TABLET PO PRN (06:00)
[2023-02-05] MEDS ORDERED: BENZOCAINE/MENTHOL LOZENGE PO PRN (06:00)
[2023-02-05] MEDS ORDERED: DOCUSATE SODIUM 100 MG CAPSULE PO PRN (06:00)
[2023-02-05] MEDS ORDERED: ALBUTEROL SULFATE HFA 90 MCG/PUFF 8 GM INHALER IH PRN (06:00)
[2023-02-05] MEDS ORDERED: MAG HYDROX/AL HYDROX/SIMETH ES 30 ML SUSPENSION UDCUP PO PRN (06:00)
[2023-02-05] MEDS ORDERED: BACITRACIN 28 GM OINTMENT TP PRN (06:00)
[2023-02-05] MEDS ORDERED: PETROLATUM,WHITE 28 GM JELLY TP PRN (06:00)
[2023-02-05] MEDS ORDERED: LOPERAMIDE HCL 2 MG CAPSULE PO PRN (06:00)
[2023-02-05 08:21] LABS: BASOPHILS % (AUTO) 0.8 % (0.0-2.0); EOSINOPHILS % (AUTO) 2.6 % (1.0-6.0); HEMATOCRIT 38.6 % (41-53); HEMOGLOBIN 13.2 g/dL (13.5-17.5); LYMPHOCYTES # (AUTO) 1.3 K/uL (1.0-4.8); LYMPHOCYTES % (AUTO) 31.2 % (22.0-44.0); MEAN CORPUSCULAR HEMOGLOBIN 30.6 pg (26.0-34.0); MEAN CORPUSCULAR HGB CONC 34.2 G/dL (31.0-37.0); MEAN CORPUSCULAR VOLUME 90 fL (80-100); MONOCYTES # (AUTO) 0.4 K/uL (0.1-1.0); MONOCYTES % (AUTO) 8.6 % (2.0-9.0); NEUTROPHILS # (AUTO) 2.3 K/uL (1.8-7.7); NEUTROPHILS % (AUTO) 56.8 % (40.0-70.0); PLATELET COUNT (AUTO) 368 K/uL (150-450); RED CELL DISTRIBUTION WIDTH 13.6 % (11.5-14.5); WHITE BLOOD COUNT (AUTO) 4.1 K/uL (4.5-11.0)
[2023-02-05 08:31] LABS: HEMOGLOBIN A1C 5.3 % (3.8-5.6)
[2023-02-05 08:44] LABS: ALANINE AMINOTRANSFERASE 23 U/L (12-78); ALBUMIN 3.2 g/dL (3.4-5.0); ALKALINE PHOSPHATASE 78 U/L (46-116); ANION GAP 6 mmol/L (8-16); ASPARTATE AMINOTRANSFERASE 22 U/L (15-37); BILIRUBIN,TOTAL 0.2 mg/dL (0.1-1.0); CALCIUM, TOTAL 8.7 mg/dL (8.8-10.5); CARBON DIOXIDE 28 mmol/L (22-29); CHLORIDE 105 mmol/L (98-107); CREATININE 0.92 mg/dL (0.60-1.30); FREE T4 (FREE THYROXINE) 0.79 ng/dL (0.76-1.46); GLOMERULAR FILTR. RATE CALC > 60 mL/min (>60); GLUCOSE,RANDOM 97 mg/dL (70-110); POTASSIUM 4.2 mmol/L (3.5-5.1); SODIUM SERUM 139 mmol/L (136-145); TOTAL PROTEIN, SERUM 6.3 g/dL (6.4-8.2); UREA NITROGEN, BLOOD 13 mg/dL (7-18)
[2023-02-05 08:48] VITALS: BP 145/90; PULSE 95; RESP 19; TEMP 98.1; O2SAT 97
[2023-02-05] MEDS: OLANZapine 10 MG TABLET PO SCH (21:05)
[2023-02-05 22:43] VITALS: BP 113/76; PULSE 71; RESP 17; TEMP 98.2; O2SAT 100
[2023-02-06] MEDS: LORazepam 2 MG TABLET PO PRN (13:08)
[2023-02-06 20:04] VITALS: BP 125/77; PULSE 77; RESP 17; TEMP 97.8
[2023-02-06] MEDS: OLANZapine 10 MG TABLET PO SCH (20:30)
[2023-02-07 08:41] VITALS: BP 130/76; PULSE 79; RESP 17; TEMP 97.9; O2SAT 96
[2023-02-07] MEDS: LORazepam 2 MG TABLET PO PRN ×2 (15:23→20:15)
[2023-02-07] MEDS: OLANZapine 10 MG TABLET PO SCH (20:15)
[2023-02-07 21:34] VITALS: BP 110/75; PULSE 101; RESP 17; TEMP 98; O2SAT 98
[2023-02-07] MEDS: ZOLPIDEM TARTRATE 10 MG TABLET PO PRN (21:35)
[2023-02-08 08:45] VITALS: BP 115/84; PULSE 76; RESP 18; TEMP 96.3; O2SAT 97
[2023-02-08] MEDS: LORazepam 2 MG TABLET PO PRN ×2 (11:00→18:12)
[2023-02-08] MEDS: ZOLPIDEM TARTRATE 10 MG TABLET PO PRN (20:43)
[2023-02-08] MEDS: OLANZapine 10 MG TABLET PO SCH (20:43)
[2023-02-08 21:06] VITALS: BP 119/76; PULSE 86; RESP 17; TEMP 98; O2SAT 97
[2023-02-09] MEDS: LORazepam 2 MG TABLET PO PRN (13:29)
[2023-02-09 13:44] VITALS: BP 112/81; PULSE 98; RESP 17; TEMP 97.9; O2SAT 99
[2023-02-09] MEDS ORDERED: OLAN10TA74 PO (16:48)
== END 2023-02-09 17:56 | disposition home or self-care (01) | DRG 750 ==
LOC: B2S 02-05 01:31
PROVIDERS: ADMIT Psychiatry & Neurology Psychiatry; ATTEND Psychiatry & Neurology Psychiatry
DX: F25.9 Schizoaffective disorder, unspecified (principal); R45.851 Suicidal ideations; F15.10 Other stimulant abuse, uncomplicated; Z20.822 Contact with and (suspected) exposure to COVID-19; F41.9 Anxiety disorder, unspecified; G47.00 Insomnia, unspecified; K59.00 Constipation, unspecified; F17.200 Nicotine dependence, unspecified, uncomplicated
CPT/HCPCS: 80053; 83036; 84439; 85025; 87081

== ENCOUNTER 2023-02-04 20:54 | Emergency (ER) | payer MEDICAID, OTHER ==
[~2023-02-04] VITALS: Ht 170.2 cm; Wt 73.0 kg
[2023-02-04 21:31] VITALS: TEMP 98.7
[2023-02-04 21:55] LABS: BASOPHILS % (AUTO) 0.8 % (0.0-2.0); EOSINOPHILS % (AUTO) 1.3 % (1.0-6.0); HEMATOCRIT 39.9 % (41-53); HEMOGLOBIN 13.8 g/dL (13.5-17.5); LYMPHOCYTES # (AUTO) 1.5 K/uL (1.0-4.8); LYMPHOCYTES % (AUTO) 25.2 % (22.0-44.0); MEAN CORPUSCULAR HEMOGLOBIN 31.4 pg (26.0-34.0); MEAN CORPUSCULAR HGB CONC 34.7 G/dL (31.0-37.0); MEAN CORPUSCULAR VOLUME 91 fL (80-100); MONOCYTES # (AUTO) 0.4 K/uL (0.1-1.0); MONOCYTES % (AUTO) 7.2 % (2.0-9.0); NEUTROPHILS # (AUTO) 3.8 K/uL (1.8-7.7); NEUTROPHILS % (AUTO) 65.5 % (40.0-70.0); PLATELET COUNT (AUTO) 390 K/uL (150-450); RED BLOOD CELL COUNT(AUTO) 4.41 MIL/uL (4.50-5.90); RED CELL DISTRIBUTION WIDTH 13.7 % (11.5-14.5); WHITE BLOOD COUNT (AUTO) 5.8 K/uL (4.5-11.0)
[2023-02-04 21:57] LABS: ALCOHOL, BLOOD (SERUM) < 3 mg/dL (0-10)
[2023-02-04 22:04] LABS: ANION GAP 5 mmol/L (8-16); CALCIUM, TOTAL 8.2 mg/dL (8.8-10.5); CARBON DIOXIDE 31 mmol/L (22-29); CHLORIDE 103 mmol/L (98-107); CREATININE 0.98 mg/dL (0.60-1.30); GLOMERULAR FILTR. RATE CALC > 60 mL/min (>60); GLUCOSE,RANDOM 115 mg/dL (70-110); POTASSIUM 4.3 mmol/L (3.5-5.1); SODIUM SERUM 139 mmol/L (136-145); UREA NITROGEN, BLOOD 11 mg/dL (7-18)
[2023-02-04 22:08] LABS: ALBUMIN 3.5 g/dL (3.4-5.0); ALKALINE PHOSPHATASE 104 U/L (46-116); ASPARTATE AMINOTRANSFERASE 29 U/L (15-37); BILIRUBIN,TOTAL 0.2 mg/dL (0.1-1.0); TOTAL PROTEIN, SERUM 6.9 g/dL (6.4-8.2)
[2023-02-04 22:22] LABS: PH,URINE DRUG SCREEN 5.5 (5.0-8.0)
[2023-02-04 22:28] LABS: AMPHET/METH SCREEN,URINE NEGATIVE (NEGATIVE); BARBITURATE SCREEN, URINE NEGATIVE (NEGATIVE); BENZODIAZEPINES SCREEN,URINE NEGATIVE (NEGATIVE); CANNABINOID SCREEN,URINE NEGATIVE (NEGATIVE); COCAINE SCREEN,URINE NEGATIVE (NEGATIVE); METHADONE SCREEN, URINE NEGATIVE (NEGATIVE); OPIATE SCREEN,URINE NEGATIVE (NEGATIVE); PHENCYCLIDINE SCREEN,URINE NEGATIVE (NEGATIVE)
[2023-02-04 22:35] LABS: ALCOHOL, URINE DRUG SCREEN NEGATIVE (NEGATIVE)
[2023-02-04 22:47] LABS: COVID AG,FIA SOURCE NASAL SWAB
[2023-02-04 23:11] LABS: ALANINE AMINOTRANSFERASE 29 U/L (12-78)
[2023-02-04 23:13] LABS: SARS-COV2 (COVID) ANTIGEN,FIA Negative (Negative)
[2023-02-05 01:07] VITALS: BP 132/72; PULSE 74; RESP 18
== END 2023-02-05 01:07 | disposition home or self-care (01) ==
LOC: EMS 20:55
DX: F25.9 Schizoaffective disorder, unspecified (principal); F41.9 Anxiety disorder, unspecified; F32.A Depression, unspecified; Z20.822 Contact with and (suspected) exposure to COVID-19
CPT/HCPCS: 99283; 87426; 80053; 85025; 36415; 80307; G0480

== ENCOUNTER 2023-03-14 17:52 | Emergency (ER) | payer MEDICAID, OTHER ==
[~2023-03-14] VITALS: Ht 170.2 cm; Wt 65.9 kg
[~2023-03-14 17:52] MED LIST changes: -BUPR-50 PO; -NALT50TA PO; +OLAN10TA74 PO
[2023-03-14 18:11] VITALS: BP 149/88; PULSE 98; RESP 16; TEMP 98.9
[2023-03-14] MEDS ORDERED: LORA-1000 PO (19:08)
[2023-03-14] MEDS ORDERED: LORazepam 1 MG TABLET PO ONE (19:15)
[2023-03-14] MEDS ORDERED: FURO20TA4 PO (19:16)
[2023-03-14] MEDS ORDERED: METF-1211 PO (19:16)
[2023-03-14] MEDS ORDERED: LISI20TA24 PO (19:16)
[2023-03-15] MEDS ORDERED: LORA-1000 PO (14:06)
== END 2023-03-14 20:25 | disposition home or self-care (01) ==
LOC: EMS 17:53
DX: F41.9 Anxiety disorder, unspecified (principal); F20.9 Schizophrenia, unspecified; R07.89 Other chest pain; F32.A Depression, unspecified; M79.7 Fibromyalgia
CPT/HCPCS: 93005; 99283

== ENCOUNTER 2023-04-21 19:02 | Emergency (ER) | payer OTHER ==
[~2023-04-21] VITALS: Ht 170.2 cm; Wt 72.7 kg
[~2023-04-21 19:02] MED LIST changes: +FURO20TA4 PO; +LISI20TA24 PO; +LORA-1000 PO; +METF-1211 PO
[2023-04-21] MEDS ORDERED: ASPIRIN 81 MG CHEWABLE TABLET PO ONE (20:45)
[2023-04-21 20:49] LABS: BASOPHILS % (AUTO) 0.9 % (0.0-2.0); EOSINOPHILS % (AUTO) 1.5 % (1.0-6.0); HEMATOCRIT 36.7 % (41-53); HEMOGLOBIN 12.8 g/dL (13.5-17.5); LYMPHOCYTES # (AUTO) 1.3 K/uL (1.0-4.8); LYMPHOCYTES % (AUTO) 24.4 % (22.0-44.0); MEAN CORPUSCULAR HEMOGLOBIN 31.4 pg (26.0-34.0); MEAN CORPUSCULAR HGB CONC 34.7 G/dL (31.0-37.0); MEAN CORPUSCULAR VOLUME 90 fL (80-100); MONOCYTES # (AUTO) 0.5 K/uL (0.1-1.0); NEUTROPHILS # (AUTO) 3.4 K/uL (1.8-7.7); NEUTROPHILS % (AUTO) 64.2 % (40.0-70.0); PLATELET COUNT (AUTO) 393 K/uL (150-450); RED BLOOD CELL COUNT(AUTO) 4.07 MIL/uL (4.50-5.90); RED CELL DISTRIBUTION WIDTH 13.4 % (11.5-14.5); WHITE BLOOD COUNT (AUTO) 5.3 K/uL (4.5-11.0)
[2023-04-21 21:02] LABS: CALCIUM, TOTAL 8.8 mg/dL (8.8-10.5); CREATININE 1.37 mg/dL (0.60-1.30); POTASSIUM 3.6 mmol/L (3.5-5.1)
[2023-04-21 21:07] LABS: ALBUMIN 3.5 g/dL (3.4-5.0); BILIRUBIN,TOTAL 0.2 mg/dL (0.1-1.0); TOTAL PROTEIN, SERUM 7.1 g/dL (6.4-8.2)
[2023-04-21 21:09] LABS: TROPONIN I-HIGH SENSITIVITY 9 ng/L (<76)
[2023-04-21] MEDS ORDERED: LORazepam 1 MG TABLET PO ONE (22:00)
[2023-04-21] MEDS ORDERED: LORazepam 0.5 MG TABLET PO ONE (22:15)
[2023-04-21 22:27] LABS: TROPONIN I-HIGH SENSITIVITY 7 ng/L (<76)
[2023-04-21 22:41] VITALS: BP 144/81; PULSE 91; RESP 16; TEMP 98.2
== END 2023-04-21 22:48 | disposition home or self-care (01) ==
LOC: EMS 19:02
DX: F41.9 Anxiety disorder, unspecified (principal); R07.89 Other chest pain
CPT/HCPCS: 71045; 80053; 84484; 85025; 93005; 99285; 36415-L1; 36415-TC

== ENCOUNTER 2023-05-31 17:42 | Inpatient (IN) | payer MEDICAID ==
[~2023-05-31] VITALS: Ht 170.2 cm; Wt 70.8 kg
[2023-05-31 18:56] LABS: GLUCOMETER DEV NAME(LOC) POC.BV; POC SARS-COV2 AG, FIA NEGATIVE (NEGATIVE)
[2023-05-31] MEDS ORDERED: VENL-68 PO (18:58)
[2023-05-31 19:20] VITALS: BP 109/82; PULSE 81; RESP 17; TEMP 96.9; O2SAT 99
[2023-05-31 19:30] VITALS: BP 109/82; PULSE 81; RESP 17; TEMP 96.9
[2023-05-31] MEDS ORDERED: INFLUENZA VIRUS VACCINE QVS 2023-24 (6MO+)/PF 60 MCG/0.5 ML SYRINGE IM. ONE (19:30)
[2023-05-31 22:38] VITALS: RESP 16
[2023-06-01] MEDS: ZOLPIDEM TARTRATE 10 MG TABLET PO PRN ×2 (02:29→20:33)
[2023-06-01] MEDS: LORazepam 2 MG TABLET PO PRN ×3 (02:30→20:33)
[2023-06-01 08:00] VITALS: RESP 20
[2023-06-01 08:17] LABS: BASOPHILS % (AUTO) 0.2 % (0.0-2.0); EOSINOPHILS % (AUTO) 0.2 % (1.0-6.0); HEMATOCRIT 36.8 % (41-53); HEMOGLOBIN 12.8 g/dL (13.5-17.5); LYMPHOCYTES % (AUTO) 10.9 % (22.0-44.0); MEAN CORPUSCULAR HEMOGLOBIN 30.8 pg (26.0-34.0); MEAN CORPUSCULAR HGB CONC 34.8 G/dL (31.0-37.0); MEAN CORPUSCULAR VOLUME 89 fL (80-100); MONOCYTES # (AUTO) 0.9 K/uL (0.1-1.0); NEUTROPHILS # (AUTO) 6.9 K/uL (1.8-7.7); NEUTROPHILS % (AUTO) 78.7 % (40.0-70.0); PLATELET COUNT (AUTO) 380 K/uL (150-450); RED BLOOD CELL COUNT(AUTO) 4.15 MIL/uL (4.50-5.90); RED CELL DISTRIBUTION WIDTH 12.7 % (11.5-14.5); WHITE BLOOD COUNT (AUTO) 8.8 K/uL (4.5-11.0)
[2023-06-01] MEDS: HALOPERIDOL 5 MG TABLET PO PRN ×2 (08:19→20:33)
[2023-06-01 08:36] LABS: HEMOGLOBIN A1C 5.5 % (3.8-5.6)
[2023-06-01 08:53] LABS: ALANINE AMINOTRANSFERASE 25 U/L (12-78); ALBUMIN 2.9 g/dL (3.4-5.0); ALKALINE PHOSPHATASE 131 U/L (46-116); ANION GAP 10 mmol/L (8-16); ASPARTATE AMINOTRANSFERASE 21 U/L (15-37); BILIRUBIN,TOTAL 0.5 mg/dL (0.1-1.0); CALCIUM, TOTAL 8.8 mg/dL (8.8-10.5); CARBON DIOXIDE 27 mmol/L (22-29); CHLORIDE 100 mmol/L (98-107); CHOL/HDL RATIO 2.6 (4.2-7.3); CHOLESTEROL 148 mg/dL (131-200); CREATININE 0.88 mg/dL (0.60-1.30); FREE T4 (FREE THYROXINE) 0.99 ng/dL (0.76-1.46); GLOMERULAR FILTR. RATE CALC > 60 mL/min (>60); GLUCOSE,RANDOM 100 mg/dL (70-110); HDL CHOLESTEROL 57 mg/dL (40-60); LDL CHOL (CALC.) 79 mg/dL (0-130); POTASSIUM 4.4 mmol/L (3.5-5.1); SODIUM SERUM 137 mmol/L (136-145); THYROID STIMULATING HORMONE 0.54 uIU/mL (0.36-3.74); TOTAL PROTEIN, SERUM 6.8 g/dL (6.4-8.2); TRIGLYCERIDES 60 mg/dL (15-150); UREA NITROGEN, BLOOD 11 mg/dL (7-18)
[2023-06-01 20:03] VITALS: BP 116/81; PULSE 77; RESP 18; TEMP 98
[2023-06-02 08:58] VITALS: BP 111/78; PULSE 81; RESP 20; TEMP 97.7
[2023-06-02] MEDS: LORazepam 2 MG TABLET PO PRN (17:02)
[2023-06-02] MEDS: HALOPERIDOL 5 MG TABLET PO PRN (17:02)
[2023-06-02 20:11] VITALS: BP 114/72; PULSE 86; RESP 18; TEMP 97.8; O2SAT 98
[2023-06-03] MEDS: LORazepam 2 MG TABLET PO PRN ×2 (06:08→20:04)
[2023-06-03 06:09] VITALS: BP 117/79; PULSE 100; RESP 19; TEMP 97.4; O2SAT 96
[2023-06-03 08:22] VITALS: BP 102/74; PULSE 93; RESP 17; TEMP 97.7; O2SAT 96
[2023-06-03] MEDS: VENLAFAXINE HCL 150 MG ER CAPSULE PO SCH (09:25)
[2023-06-03] MEDS: OLANZapine 10 MG RAPDIS TABLET PO SCH (20:04)
[2023-06-03 20:07] VITALS: BP 128/84; PULSE 94; RESP 18; TEMP 97.8; O2SAT 98
[2023-06-04 08:10] VITALS: BP 123/73; PULSE 85; RESP 16; TEMP 98.5; O2SAT 95
[2023-06-04] MEDS: VENLAFAXINE HCL 150 MG ER CAPSULE PO SCH (08:17)
[2023-06-04] MEDS: LORazepam 2 MG TABLET PO PRN (18:24)
[2023-06-04 20:06] VITALS: BP 112/67; PULSE 89; RESP 17; TEMP 98; O2SAT 97
[2023-06-04] MEDS: OLANZapine 10 MG RAPDIS TABLET PO SCH (20:47)
[2023-06-05] MEDS: VENLAFAXINE HCL 150 MG ER CAPSULE PO SCH (10:42)
[2023-06-05] MEDS: LORazepam 2 MG TABLET PO PRN (18:17)
[2023-06-05] MEDS: ZOLPIDEM TARTRATE 10 MG TABLET PO PRN (20:37)
[2023-06-05] MEDS: OLANZapine 10 MG RAPDIS TABLET PO SCH (20:37)
[2023-06-06 00:49] VITALS: RESP 18
[2023-06-06 08:05] VITALS: RESP 16
[2023-06-06] MEDS: VENLAFAXINE HCL 150 MG ER CAPSULE PO SCH (10:00)
[2023-06-06] MEDS: LORazepam 2 MG TABLET PO PRN (18:08)
[2023-06-06] MEDS: HALOPERIDOL 5 MG TABLET PO PRN (18:08)
[2023-06-06] MEDS: ZOLPIDEM TARTRATE 10 MG TABLET PO PRN (20:52)
[2023-06-06] MEDS: OLANZapine 10 MG RAPDIS TABLET PO SCH (20:52)
[2023-06-07 01:22] VITALS: RESP 18
[2023-06-07] MEDS: HALOPERIDOL 5 MG TABLET PO PRN ×2 (08:48→18:27)
[2023-06-07] MEDS: LORazepam 2 MG TABLET PO PRN ×2 (08:48→18:27)
[2023-06-07] MEDS: VENLAFAXINE HCL 150 MG ER CAPSULE PO SCH (08:48)
[2023-06-07 20:04] VITALS: BP 101/67; PULSE 99; RESP 18; TEMP 97.8; O2SAT 99
[2023-06-07] MEDS: ZOLPIDEM TARTRATE 10 MG TABLET PO PRN (20:34)
[2023-06-07] MEDS: OLANZapine 10 MG RAPDIS TABLET PO SCH (20:34)
[2023-06-08 08:12] VITALS: BP 105/64; PULSE 96; RESP 17; TEMP 97.7; O2SAT 97
[2023-06-08] MEDS: LORazepam 2 MG TABLET PO PRN (08:20)
[2023-06-08] MEDS: VENLAFAXINE HCL 150 MG ER CAPSULE PO SCH (08:20)
[2023-06-08] MEDS: HALOPERIDOL 5 MG TABLET PO PRN (08:20)
[2023-06-08] MEDS ORDERED: VENL150C5 PO (16:01)
[2023-06-08] MEDS ORDERED: OLAN10TA26 PO (16:01)
== END 2023-06-08 18:17 | disposition home or self-care (01) | DRG 750 ==
LOC: B3A 18:34
PROVIDERS: ADMIT Psychiatry & Neurology Child & Adolescent Psychiatry; ATTEND Psychiatry & Neurology Child & Adolescent Psychiatry
PROC: GZHZZZZ Group Psychotherapy (ICD-10-PCS; principal; 2023-06-05)
PROC: GZ51ZZZ Individual Psychotherapy, Behavioral (ICD-10-PCS; 2023-06-05)
DX: F25.1 Schizoaffective disorder, depressive type (principal); F15.10 Other stimulant abuse, uncomplicated; G47.00 Insomnia, unspecified; I10 Essential (primary) hypertension; K59.00 Constipation, unspecified; M79.7 Fibromyalgia; F17.210 Nicotine dependence, cigarettes, uncomplicated; Z79.899 Other long term (current) drug therapy
CPT/HCPCS: 80053; 80061; 83036; 84439; 84443; 85025

== ENCOUNTER 2024-07-20 20:52 | Inpatient (IN) | payer MEDICAID ==
[~2024-07-20] VITALS: Ht 170.2 cm; Wt 68.9 kg
[~2024-07-20 20:52] MED LIST changes: -FURO20TA4 PO; -LISI20TA24 PO; -LORA-1000 PO; -METF-1211 PO; +VENL150C5 PO
[2024-07-20 21:40] VITALS: BP 137/88; PULSE 91; RESP 18; TEMP 98.7; O2SAT 99
[2024-07-20 22:06] LABS: GLUCOMETER DEV NAME(LOC) POC.BV; POC SARS-COV2 AG, FIA NEGATIVE (NEGATIVE)
[2024-07-20 22:54] VITALS: BP 136/95; PULSE 82; RESP 16; TEMP 98.4; O2SAT 98
[2024-07-20] MEDS: LORazepam 2 MG TABLET PO PRN (23:20)
[2024-07-20] MEDS: AMOX TR/POT CLAV 875 MG/125 MG TABLET PO SCH (23:20)
[2024-07-20] MEDS: HALOPERIDOL 5 MG TABLET PO PRN (23:20)
[2024-07-21] MEDS ORDERED: PETROLATUM,WHITE 28 GM JELLY TP PRN (07:00)
[2024-07-21] MEDS ORDERED: ALBUTEROL SULFATE HFA 90 MCG/PUFF 8 GM INHALER IH PRN (07:00)
[2024-07-21] MEDS ORDERED: CloNIDine HCL 0.1 MG TABLET PO PRN (07:00)
[2024-07-21] MEDS ORDERED: MAG HYDROX/ALUMINUM HYD/SIMETH ES 30 ML SUSPENSION UDCUP PO PRN (07:00)
[2024-07-21] MEDS ORDERED: DOCUSATE SODIUM 100 MG CAPSULE PO PRN (07:00)
[2024-07-21] MEDS ORDERED: ACETAMINOPHEN 325 MG TABLET PO PRN (07:00)
[2024-07-21] MEDS ORDERED: NICOTINE 14 MG/24 HOUR PATCH TD PRN (07:00)
[2024-07-21] MEDS ORDERED: LOPERAMIDE HCL 2 MG CAPSULE PO PRN (07:00)
[2024-07-21] MEDS ORDERED: GuaiFENesin/D-METHORPHAN [SUGAR-FREE] 200-20MG/10 ML SYRUP UDCUP PO PRN (07:00)
[2024-07-21] MEDS ORDERED: MAGNESIUM HYDROXIDE SUSPENSION 30 ML UDCUP PO PRN (07:00)
[2024-07-21] MEDS ORDERED: IBUPROFEN 400 MG TABLET PO PRN (07:00)
[2024-07-21] MEDS ORDERED: ONDANSETRON 4 MG TABLET PO PRN (07:00)
[2024-07-21 08:31] VITALS: BP 129/89; PULSE 80; RESP 20; TEMP 98.6; O2SAT 96
[2024-07-21 08:58] LABS: BASOPHILS % (AUTO) 0.9 % (0.0-2.0); EOSINOPHILS % (AUTO) 2.8 % (1.0-6.0); HEMOGLOBIN 12.1 g/dL (13.5-17.5); LYMPHOCYTES # (AUTO) 1.1 K/uL (1.0-4.8); LYMPHOCYTES % (AUTO) 22.7 % (22.0-44.0); MEAN CORPUSCULAR HEMOGLOBIN 29.6 pg (26.0-34.0); MEAN CORPUSCULAR HGB CONC 33.5 G/dL (31.0-37.0); MEAN CORPUSCULAR VOLUME 88 fL (80-100); MONOCYTES # (AUTO) 0.4 K/uL (0.1-1.0); MONOCYTES % (AUTO) 8.3 % (2.0-9.0); NEUTROPHILS # (AUTO) 3.2 K/uL (1.8-7.7); NEUTROPHILS % (AUTO) 65.3 % (40.0-70.0); PLATELET COUNT (AUTO) 482 K/uL (150-450); RED BLOOD CELL COUNT(AUTO) 4.08 MIL/uL (4.50-5.90); RED CELL DISTRIBUTION WIDTH 14.5 % (11.5-14.5); WHITE BLOOD COUNT (AUTO) 4.9 K/uL (4.5-11.0)
[2024-07-21 09:06] LABS: HEMOGLOBIN A1C 5.5 % (3.8-5.6)
[2024-07-21 09:33] LABS: ALANINE AMINOTRANSFERASE 34 U/L (12-78); ALBUMIN 2.9 g/dL (3.4-5.0); ALKALINE PHOSPHATASE 94 U/L (46-116); ANION GAP 7 mmol/L (8-16); ASPARTATE AMINOTRANSFERASE 25 U/L (15-37); BILIRUBIN,TOTAL 0.4 mg/dL (0.1-1.0); CALCIUM, TOTAL 8.8 mg/dL (8.8-10.5); CARBON DIOXIDE 27 mmol/L (22-29); CHLORIDE 104 mmol/L (98-107); CHOL/HDL RATIO 1.9 (4.2-7.3); CHOLESTEROL 148 mg/dL (131-200); CREATININE 0.87 mg/dL (0.60-1.30); FREE T4 (FREE THYROXINE) 0.85 ng/dL (0.76-1.46); GLOMERULAR FILTR. RATE CALC > 60 mL/min (>60); GLUCOSE,RANDOM 91 mg/dL (70-110); HDL CHOLESTEROL 76 mg/dL (40-60); LDL CHOL (CALC.) 63 mg/dL (0-130); POTASSIUM 4.5 mmol/L (3.5-5.1); SODIUM SERUM 138 mmol/L (136-145); THYROID STIMULATING HORMONE 1.22 uIU/mL (0.36-3.74); TOTAL PROTEIN, SERUM 6.6 g/dL (6.4-8.2); TRIGLYCERIDES 45 mg/dL (15-150); UREA NITROGEN, BLOOD 13 mg/dL (7-18)
[2024-07-22] MEDS: VENLAFAXINE HCL 150 MG ER CAPSULE PO SCH (09:08)
[2024-07-22 09:35] VITALS: BP 122/86; PULSE 82; RESP 18; TEMP 98; O2SAT 98
[2024-07-22] MEDS: ETHYL ALCOHOL 62% ANTISEPTIC NASAL SANITIZER 0.6 ML AMPUL NASAL ONE (10:54)
[2024-07-22 20:50] VITALS: BP 119/82; PULSE 76; RESP 17; TEMP 97.6; O2SAT 97
[2024-07-22] MEDS: ETHYL ALCOHOL 62% ANTISEPTIC NASAL SANITIZER 0.6 ML AMPUL NASAL SCH (21:28)
[2024-07-22] MEDS: CHLORHEXIDINE GLUCONATE 2% TOWELETTE [2'S/6'S] TP SCH (21:28)
[2024-07-22] MEDS: OLANZapine 10 MG TABLET PO SCH (21:28)
[2024-07-23 08:13] VITALS: BP 122/82; PULSE 85; RESP 15; TEMP 97.2; O2SAT 98
[2024-07-23 23:47] VITALS: RESP 18
[2024-07-24 09:39] VITALS: RESP 18
[2024-07-24 20:26] VITALS: BP 125/75; PULSE 88; RESP 18; TEMP 98.3; O2SAT 97
[2024-07-25 09:43] VITALS: BP 119/82; PULSE 100; RESP 16; TEMP 97.7; O2SAT 97
[2024-07-25 20:45] VITALS: BP 128/85; RESP 18; TEMP 98; O2SAT 98
[2024-07-25] MEDS: ZOLPIDEM TARTRATE 10 MG TABLET PO PRN (20:58)
[2024-07-25] MEDS: OLANZapine 7.5 MG TABLET PO SCH (21:28)
[2024-07-26 10:51] VITALS: BP 120/78; PULSE 81; RESP 18; TEMP 97.1; O2SAT 97
[2024-07-26 23:01] VITALS: RESP 18
[2024-07-27 10:14] VITALS: BP 167/76; PULSE 86; RESP 16; TEMP 98.2; O2SAT 99
[2024-07-27 20:43] VITALS: BP 123/82; PULSE 97; RESP 17; TEMP 98.8; O2SAT 98
[2024-07-28 09:45] LABS: APPEARANCE,URINE HAZY (CLEAR); BILIRUBIN,URINE NEGATIVE (NEGATIVE); COLOR,URINE YELLOW (YELLOW); GLUCOSE, URINE (UA) NEGATIVE (NEGATIVE); KETONES,URINE TRACE mg/dL (NEGATIVE); LEUKOCYTE ESTERASE ,URINE NEGATIVE (NEGATIVE); NITRATE,URINE NEGATIVE (NEGATIVE); OCCULT BLOOD,URINE MODERATE (NEGATIVE); PH,URINE 5.5 (5.0-8.0); PH,URINE DRUG SCREEN 5.5 (5.0-8.0); PROTEIN,URINE TRACE mg/dL (NEGATIVE); SPECIFIC GRAVITIY, URINE 1.037 (1.003-1.030); UROBILINOGEN,URINE <=1.0 mg/dL (<=1.0)
[2024-07-28 09:56] LABS: BACTERIA,URINE Many /HPF (None Seen); RBC,URINE None Seen /HPF (0-2); WBC,URINE 0-2 /HPF (0-5)
[2024-07-28 10:05] LABS: ALCOHOL, URINE DRUG SCREEN NEGATIVE (NEGATIVE); AMPHET/METH SCREEN,URINE NEGATIVE (NEGATIVE); BARBITURATE SCREEN, URINE NEGATIVE (NEGATIVE); BENZODIAZEPINES SCREEN,URINE NEGATIVE (NEGATIVE); CANNABINOID SCREEN,URINE NEGATIVE (NEGATIVE); COCAINE SCREEN,URINE NEGATIVE (NEGATIVE); METHADONE SCREEN, URINE NEGATIVE (NEGATIVE); OPIATE SCREEN,URINE NEGATIVE (NEGATIVE); PHENCYCLIDINE SCREEN,URINE NEGATIVE (NEGATIVE)
== END 2024-07-28 20:02 | disposition left against medical advice (07) | DRG 750 ==
LOC: B2S 21:46
PROVIDERS: ADMIT Psychiatry & Neurology Psychiatry; ATTEND Psychiatry & Neurology Child & Adolescent Psychiatry
PROC: GZHZZZZ Group Psychotherapy (ICD-10-PCS; principal; 2024-07-21)
PROC: GZ52ZZZ Individual Psychotherapy, Cognitive (ICD-10-PCS; 2024-07-21)
DX: F25.1 Schizoaffective disorder, depressive type (principal); F15.20 Other stimulant dependence, uncomplicated; F41.9 Anxiety disorder, unspecified; I10 Essential (primary) hypertension; Z20.822 Contact with and (suspected) exposure to COVID-19; M79.7 Fibromyalgia; Z79.899 Other long term (current) drug therapy; Z91.51 Personal history of suicidal behavior; Z53.29 Procedure and treatment not carried out because of patient's decision for other reasons
CPT/HCPCS: 80053; 80061; 80307; 81001; 83036; 84439; 84443; 85025; 87081; 87086

== ENCOUNTER 2024-08-03 01:35 | Inpatient (IN) | payer MEDICAID ==
[~2024-08-03] VITALS: Ht 170.2 cm; Wt 69.9 kg
[2024-08-03 04:12] VITALS: BP 139/77; PULSE 95; RESP 18; TEMP 98.1; O2SAT 100
[2024-08-03 04:56] LABS: GLUCOMETER DEV NAME(LOC) POC.BV; POC SARS-COV2 AG, FIA NEGATIVE (NEGATIVE)
[2024-08-03 08:40] VITALS: BP 148/97; PULSE 89; RESP 18; TEMP 98.4; O2SAT 95
[2024-08-03] MEDS: LORazepam 2 MG TABLET PO PRN (08:49)
[2024-08-03] MEDS ORDERED: LOPERAMIDE HCL 2 MG CAPSULE PO PRN (10:45)
[2024-08-03] MEDS ORDERED: MAG HYDROX/ALUMINUM HYD/SIMETH ES 30 ML SUSPENSION UDCUP PO PRN (10:45)
[2024-08-03] MEDS ORDERED: IBUPROFEN 400 MG TABLET PO PRN (10:45)
[2024-08-03] MEDS ORDERED: CloNIDine HCL 0.1 MG TABLET PO PRN (10:45)
[2024-08-03] MEDS ORDERED: ACETAMINOPHEN 325 MG TABLET PO PRN (10:45)
[2024-08-03] MEDS ORDERED: GuaiFENesin/D-METHORPHAN [SUGAR-FREE] 200-20MG/10 ML SYRUP UDCUP PO PRN (10:45)
[2024-08-03] MEDS ORDERED: PETROLATUM,WHITE 28 GM JELLY TP PRN (10:45)
[2024-08-03] MEDS ORDERED: ALBUTEROL SULFATE HFA 90 MCG/PUFF 8 GM INHALER IH PRN (10:45)
[2024-08-03] MEDS ORDERED: ONDANSETRON 4 MG TABLET PO PRN (10:45)
[2024-08-03] MEDS ORDERED: MAGNESIUM HYDROXIDE SUSPENSION 30 ML UDCUP PO PRN (10:45)
[2024-08-03] MEDS ORDERED: DOCUSATE SODIUM 100 MG CAPSULE PO PRN (10:45)
[2024-08-03] MEDS ORDERED: NICOTINE 14 MG/24 HOUR PATCH TD PRN (10:45)
[2024-08-03] MEDS: VENLAFAXINE HCL 150 MG ER CAPSULE PO SCH (13:11)
[2024-08-03] MEDS: OLANZapine 10 MG TABLET PO SCH (13:12)
[2024-08-03] MEDS: DOXYCYCLINE HYCLATE 100 MG TABLET PO SCH (17:29)
[2024-08-03 21:08] VITALS: BP 115/93; PULSE 81; RESP 20; TEMP 97.5; O2SAT 94
[2024-08-04 08:28] VITALS: RESP 19
[2024-08-04 09:35] VITALS: BP 144/108; PULSE 103; RESP 19; TEMP 98.2; O2SAT 97
[2024-08-04] MEDS ORDERED: GuaiFENesin/D-METHORPHAN [SUGAR-FREE] 200-20MG/10 ML SYRUP UDCUP PO PRN (20:00)
[2024-08-04] MEDS ORDERED: MAG HYDROX/ALUMINUM HYD/SIMETH ES 30 ML SUSPENSION UDCUP PO PRN (20:00)
[2024-08-04] MEDS ORDERED: LOPERAMIDE HCL 2 MG CAPSULE PO PRN (20:00)
[2024-08-04] MEDS ORDERED: ALBUTEROL SULFATE HFA 90 MCG/PUFF 8 GM INHALER IH PRN (20:00)
[2024-08-04] MEDS ORDERED: IBUPROFEN 400 MG TABLET PO PRN (20:00)
[2024-08-04] MEDS ORDERED: CloNIDine HCL 0.1 MG TABLET PO PRN (20:00)
[2024-08-04] MEDS ORDERED: NICOTINE 14 MG/24 HOUR PATCH TD PRN (20:00)
[2024-08-04] MEDS ORDERED: ONDANSETRON 4 MG TABLET PO PRN (20:00)
[2024-08-04] MEDS ORDERED: ACETAMINOPHEN 325 MG TABLET PO PRN (20:00)
[2024-08-04] MEDS ORDERED: MAGNESIUM HYDROXIDE SUSPENSION 30 ML UDCUP PO PRN (20:00)
[2024-08-04] MEDS ORDERED: PETROLATUM,WHITE 28 GM JELLY TP PRN (20:00)
[2024-08-04 20:27] VITALS: BP 134/78; PULSE 74; RESP 18; TEMP 97.9; O2SAT 95
[2024-08-05 13:27] VITALS: BP 124/89; PULSE 101; RESP 18; TEMP 97.9; O2SAT 96
[2024-08-05 20:43] VITALS: BP 140/81; PULSE 102; RESP 18; TEMP 97.9; O2SAT 96
[2024-08-06 04:21] VITALS: BP 142/99; PULSE 98; RESP 17; TEMP 97.5; O2SAT 98
[2024-08-06 09:09] VITALS: BP 118/67; PULSE 87; RESP 18; TEMP 96.4; O2SAT 98
[2024-08-06 21:27] VITALS: BP 118/80; PULSE 87; RESP 18; TEMP 96.6; O2SAT 96
[2024-08-07 08:30] VITALS: BP 124/85; PULSE 118; RESP 18; TEMP 97.7; O2SAT 99
[2024-08-07] MEDS ORDERED: HALOPERIDOL LACTATE 5 MG/ML VIAL ONE (12:56)
[2024-08-07] MEDS: DiphenhydrAMINE HCL 50 MG/ML VIAL IM ONE (13:37)
[2024-08-07] MEDS: LORazepam 2 MG/ML VIAL IM ONE (13:37)
[2024-08-07] MEDS: HALOPERIDOL LACTATE 5 MG/ML VIAL IM ONE (13:39)
[2024-08-08 02:01] VITALS: RESP 18
[2024-08-08 08:47] VITALS: BP 111/68; PULSE 80; RESP 16; TEMP 98.9; O2SAT 99
[2024-08-08] MEDS ORDERED: DiphenhydrAMINE HCL 50 MG/ML VIAL ONE (09:31)
[2024-08-08] MEDS ORDERED: LORazepam 2 MG/ML VIAL ONE (09:31)
[2024-08-08] MEDS ORDERED: HALOPERIDOL LACTATE 5 MG/ML VIAL ONE (09:31)
[2024-08-08] MEDS: DiphenhydrAMINE HCL 50 MG/ML VIAL IM ONE (09:41)
[2024-08-08] MEDS: HALOPERIDOL LACTATE 5 MG/ML VIAL IM ONE (09:41)
[2024-08-08] MEDS: LORazepam 2 MG/ML VIAL IM ONE (10:11)
[2024-08-08 10:37] VITALS: BP 101/59; PULSE 92; RESP 18; TEMP 98.4; O2SAT 97
[2024-08-08] MEDS: HALOPERIDOL 5 MG TABLET PO PRN (16:26)
[2024-08-08 21:31] VITALS: BP 112/76; PULSE 88; RESP 18; TEMP 97.8
[2024-08-09] MEDS ORDERED: HALOPERIDOL LACTATE 5 MG/ML VIAL ONE (08:31)
[2024-08-09] MEDS ORDERED: LORazepam 2 MG/ML VIAL ONE (08:31)
[2024-08-09] MEDS ORDERED: DiphenhydrAMINE HCL 50 MG/ML VIAL ONE (08:32)
[2024-08-09 08:40] VITALS: BP 102/69; PULSE 94; RESP 18; TEMP 97.8; O2SAT 98
[2024-08-09] MEDS: DiphenhydrAMINE HCL 50 MG/ML VIAL IM ONE (08:50)
[2024-08-09] MEDS: LORazepam 2 MG/ML VIAL IM ONE (08:51)
[2024-08-09] MEDS: HALOPERIDOL LACTATE 5 MG/ML VIAL IM ONE (08:51)
[2024-08-09 20:35] VITALS: BP 109/66; PULSE 85; RESP 17; TEMP 98.6; O2SAT 98
[2024-08-10 09:10] VITALS: BP 113/70; PULSE 84; RESP 17; TEMP 98.2; O2SAT 95
[2024-08-10 20:16] VITALS: BP 126/83; PULSE 93; RESP 18; TEMP 97.6; O2SAT 96
[2024-08-11 08:06] VITALS: BP 111/75; PULSE 78; RESP 16; TEMP 98; O2SAT 98
[2024-08-11 20:23] VITALS: BP 107/67; PULSE 80; RESP 17; TEMP 97.3; O2SAT 98
[2024-08-11] MEDS: ZOLPIDEM TARTRATE 10 MG TABLET PO PRN (22:38)
[2024-08-12 09:34] VITALS: BP 109/70; PULSE 77; RESP 17; TEMP 97.5; O2SAT 98
[2024-08-12 20:42] VITALS: BP 113/68; PULSE 78; RESP 18; TEMP 97.3; O2SAT 99
[2024-08-13 08:19] VITALS: BP 105/70; PULSE 83; RESP 18; TEMP 98.3; O2SAT 95
[2024-08-13] MEDS: LORazepam 2 MG/ML VIAL IM ONE (14:03)
[2024-08-13] MEDS: HALOPERIDOL LACTATE 5 MG/ML VIAL IM ONE (14:03)
[2024-08-13] MEDS: DiphenhydrAMINE HCL 50 MG/ML VIAL IM ONE (14:03)
[2024-08-13 20:18] VITALS: BP 120/73; PULSE 84; RESP 16; TEMP 97.3; O2SAT 96
[2024-08-14 09:02] VITALS: BP 118/64; PULSE 99; RESP 17; TEMP 97.7; O2SAT 98
[2024-08-14 20:12] VITALS: BP 123/67; PULSE 86; RESP 16; TEMP 98.1; O2SAT 99
[2024-08-15 20:20] VITALS: BP 108/67; PULSE 81; RESP 18; TEMP 97.9; O2SAT 97
[2024-08-16 08:11] VITALS: BP 101/64; PULSE 69; RESP 17; TEMP 98.2; O2SAT 99
[2024-08-16 20:15] VITALS: BP 97/62; PULSE 98; RESP 18; TEMP 97.5; O2SAT 77
[2024-08-16 20:26] VITALS: BP 118/80; PULSE 86; RESP 17; TEMP 98.1; O2SAT 98
[2024-08-17 08:45] VITALS: BP 110/74; PULSE 79; RESP 17; TEMP 97.3; O2SAT 98
[2024-08-17 21:16] VITALS: BP 127/87; PULSE 83; RESP 18; TEMP 97.8
[2024-08-18 08:07] VITALS: BP 107/60; PULSE 83; RESP 15; TEMP 98; O2SAT 98
[2024-08-18 20:07] VITALS: BP 123/82; PULSE 96; RESP 17; TEMP 97.3; O2SAT 99
[2024-08-19 08:35] VITALS: BP 119/76; PULSE 74; RESP 17; TEMP 97.8; O2SAT 99
[2024-08-19 20:53] VITALS: BP 108/64; PULSE 85; RESP 16; TEMP 98.5; O2SAT 98
[2024-08-19] MEDS: DOCUSATE SODIUM 100 MG CAPSULE PO PRN (21:43)
[2024-08-20 08:00] VITALS: BP 136/76; PULSE 86; RESP 16; TEMP 97.6; O2SAT 98
[2024-08-20 08:41] VITALS: RESP 16
[2024-08-20 09:41] VITALS: RESP 16
[2024-08-20 20:34] VITALS: BP 121/76; PULSE 80; RESP 16; TEMP 98.5; O2SAT 80
[2024-08-21] MEDS: INFLUENZA VIRUS VACCINE TVS (6MO+) 2024-25/PF 45 MCG/0.5 ML SYRINGE IM. ONE (06:33)
[2024-08-21 10:27] VITALS: BP 120/75; PULSE 87; RESP 17; TEMP 98.1; O2SAT 100
[2024-08-22 09:18] VITALS: BP 107/76; PULSE 83; RESP 17; TEMP 97.9; O2SAT 99
[2024-08-22 20:14] VITALS: BP 111/67; PULSE 89; RESP 16; TEMP 97.5; O2SAT 100
[2024-08-23] MEDS: AMOX TR/POT CLAV 500 MG/125 MG TABLET PO SCH (08:06)
[2024-08-23 09:20] VITALS: BP 101/72; PULSE 69; RESP 16; TEMP 98.2; O2SAT 98
[2024-08-23 09:57] LABS: APPEARANCE,URINE CLEAR (CLEAR); BILIRUBIN,URINE NEGATIVE (NEGATIVE); COLOR,URINE YELLOW (YELLOW); GLUCOSE, URINE (UA) NEGATIVE (NEGATIVE); KETONES,URINE NEGATIVE (NEGATIVE); LEUKOCYTE ESTERASE ,URINE NEGATIVE (NEGATIVE); NITRATE,URINE NEGATIVE (NEGATIVE); OCCULT BLOOD,URINE MODERATE (NEGATIVE); PH,URINE 6.5 (5.0-8.0); PH,URINE DRUG SCREEN 6.5 (5.0-8.0); PROTEIN,URINE NEGATIVE (NEGATIVE); SPECIFIC GRAVITIY, URINE 1.029 (1.003-1.030); UROBILINOGEN,URINE <=1.0 mg/dL (<=1.0)
[2024-08-23 10:02] LABS: ALCOHOL, URINE DRUG SCREEN NEGATIVE (NEGATIVE); AMPHET/METH SCREEN,URINE NEGATIVE (NEGATIVE); BARBITURATE SCREEN, URINE NEGATIVE (NEGATIVE); BENZODIAZEPINES SCREEN,URINE NEGATIVE (NEGATIVE); CANNABINOID SCREEN,URINE NEGATIVE (NEGATIVE); COCAINE SCREEN,URINE NEGATIVE (NEGATIVE); METHADONE SCREEN, URINE NEGATIVE (NEGATIVE); OPIATE SCREEN,URINE NEGATIVE (NEGATIVE); PHENCYCLIDINE SCREEN,URINE NEGATIVE (NEGATIVE)
[2024-08-23 10:11] LABS: WBC,URINE None Seen /HPF (0-5)
[2024-08-23 10:12] LABS: BACTERIA,URINE None Seen /HPF (None Seen)
[2024-08-23 21:26] VITALS: BP 97/73; PULSE 70; RESP 16; TEMP 97.8; O2SAT 98
[2024-08-24 08:29] VITALS: BP 103/72; PULSE 93; RESP 16; TEMP 97.9; O2SAT 100
[2024-08-24] MEDS ORDERED: OLAN10TA74 PO (13:03)
[2024-08-24] MEDS ORDERED: VENL-68 PO (13:04)
[2024-08-24] MEDS ORDERED: AMOX1TAB15 PO (13:16)
== END 2024-08-24 14:50 | disposition home or self-care (01) | DRG 750 ==
LOC: B2S 06:23 → B3A 08-09 10:42
PROVIDERS: ADMIT Psychiatry & Neurology Child & Adolescent Psychiatry; ATTEND Psychiatry & Neurology Child & Adolescent Psychiatry
PROC: GZ56ZZZ Individual Psychotherapy, Supportive (ICD-10-PCS; 2024-08-03)
PROC: GZ52ZZZ Individual Psychotherapy, Cognitive (ICD-10-PCS; 2024-08-04)
PROC: GZHZZZZ Group Psychotherapy (ICD-10-PCS; principal; 2024-08-05)
DX: F25.1 Schizoaffective disorder, depressive type (principal); R45.851 Suicidal ideations; F15.10 Other stimulant abuse, uncomplicated; M79.7 Fibromyalgia; G47.00 Insomnia, unspecified; K59.00 Constipation, unspecified; K21.9 Gastro-esophageal reflux disease without esophagitis; I10 Essential (primary) hypertension; Z20.822 Contact with and (suspected) exposure to COVID-19; F41.9 Anxiety disorder, unspecified; Z59.00 Homelessness unspecified
CPT/HCPCS: 80307; 81001; 87081; J1200; J1630; J2060

== ENCOUNTER → 2024-10-22 | Emergency (ER) | payer MEDICAID, OTHER ==
[2024-09-05 06:25] VITALS: O2SAT 100
[~2024-10-22] MED LIST changes: +CLON1PAT13 TD; -VENL150C5 PO
[2024-10-22 20:40] VITALS: BP 118/81; PULSE 83; RESP 14; TEMP 98
== END | disposition still patient (30) ==
LOC: EDUNIT# 20:36 → EMS 20:39
DX: Z00.00 Encounter for general adult medical examination without abnormal findings (principal); Z53.21 Procedure and treatment not carried out due to patient leaving prior to being seen by health care provider

== ENCOUNTER 2024-11-04 20:40 | Inpatient (IN) | payer MEDICAID ==
[~2024-11-04] VITALS: Ht 170.2 cm; Wt 71.7 kg
[2024-11-04] MEDS: LORazepam 2 MG TABLET PO PRN (23:18)
[2024-11-04] MEDS: ZOLPIDEM TARTRATE 10 MG TABLET PO PRN (23:18)
[2024-11-05 01:23] VITALS: BP 134/102; PULSE 76; RESP 15; TEMP 97.2; O2SAT 100
[2024-11-05 01:51] LABS: GLUCOMETER DEV NAME(LOC) POC.BV; POC SARS-COV2 AG, FIA NEGATIVE (NEGATIVE)
[2024-11-05] MEDS ORDERED: PNEUMOCOCCAL VACCINE POLYVALENT 0.5 ML SYRINGE [PPSV23] IM. ONE (02:15)
[2024-11-05] MEDS ORDERED: DOCUSATE SODIUM 100 MG CAPSULE PO PRN (07:45)
[2024-11-05] MEDS ORDERED: ACETAMINOPHEN 325 MG TABLET PO PRN (07:45)
[2024-11-05] MEDS ORDERED: CloNIDine HCL 0.1 MG TABLET PO PRN (07:45)
[2024-11-05] MEDS ORDERED: OMEPRAZOLE 20 MG CAPSULE PO PRN (07:45)
[2024-11-05] MEDS ORDERED: MAG HYDROX/ALUMINUM HYD/SIMETH ES 30 ML SUSPENSION UDCUP PO PRN (07:45)
[2024-11-05] MEDS ORDERED: BACITRACIN 28 GM OINTMENT TP PRN (07:45)
[2024-11-05] MEDS ORDERED: LOPERAMIDE HCL 2 MG CAPSULE PO PRN (07:45)
[2024-11-05] MEDS ORDERED: ONDANSETRON 4 MG TABLET PO PRN (07:45)
[2024-11-05] MEDS ORDERED: MAGNESIUM HYDROXIDE SUSPENSION 30 ML UDCUP PO PRN (07:45)
[2024-11-05] MEDS ORDERED: ALBUTEROL SULFATE HFA 90 MCG/PUFF 8 GM INHALER IH PRN (07:45)
[2024-11-05] MEDS ORDERED: PETROLATUM,WHITE 28 GM JELLY TP PRN (07:45)
[2024-11-05] MEDS ORDERED: BENZOCAINE/MENTHOL [CEPACOL] LOZENGE PO PRN (07:45)
[2024-11-05] MEDS ORDERED: IBUPROFEN 600 MG TABLET PO PRN (07:45)
[2024-11-05 09:05] VITALS: BP 140/100; PULSE 80; RESP 16; TEMP 98.4; O2SAT 98
[2024-11-05] MEDS: lisinopriL 5 MG TABLET PO SCH (09:08)
[2024-11-05 09:40] LABS: BASOPHILS % (AUTO) 0.9 % (0.0-2.0); EOSINOPHILS % (AUTO) 2.5 % (1.0-6.0); HEMOGLOBIN 12.9 g/dL (13.5-17.5); LYMPHOCYTES % (AUTO) 17.5 % (22.0-44.0); MEAN CORPUSCULAR HEMOGLOBIN 30.4 pg (26.0-34.0); MEAN CORPUSCULAR HGB CONC 34.1 G/dL (31.0-37.0); MEAN CORPUSCULAR VOLUME 89 fL (80-100); MONOCYTES # (AUTO) 0.5 K/uL (0.1-1.0); MONOCYTES % (AUTO) 8.2 % (2.0-9.0); NEUTROPHILS % (AUTO) 70.9 % (40.0-70.0); PLATELET COUNT (AUTO) 352 K/uL (150-450); RED BLOOD CELL COUNT(AUTO) 4.26 MIL/uL (4.50-5.90); RED CELL DISTRIBUTION WIDTH 14.8 % (11.5-14.5); WHITE BLOOD COUNT (AUTO) 5.7 K/uL (4.5-11.0)
[2024-11-05 09:47] LABS: HEMOGLOBIN A1C 5.3 % (3.8-5.6)
[2024-11-05 10:09] LABS: ALANINE AMINOTRANSFERASE 25 U/L (12-78); ALBUMIN 3.2 g/dL (3.4-5.0); ALKALINE PHOSPHATASE 100 U/L (46-116); ANION GAP 7 mmol/L (8-16); ASPARTATE AMINOTRANSFERASE 23 U/L (15-37); BILIRUBIN,TOTAL 0.2 mg/dL (0.1-1.0); CALCIUM, TOTAL 8.3 mg/dL (8.8-10.5); CARBON DIOXIDE 25 mmol/L (22-29); CHLORIDE 107 mmol/L (98-107); CHOL/HDL RATIO 2.2 (4.2-7.3); CHOLESTEROL 134 mg/dL (131-200); CREATININE 0.84 mg/dL (0.60-1.30); GLOMERULAR FILTR. RATE CALC > 60 mL/min (>60); GLUCOSE,RANDOM 87 mg/dL (70-110); HDL CHOLESTEROL 60 mg/dL (40-60); LDL CHOL (CALC.) 47 mg/dL (0-130); SODIUM SERUM 139 mmol/L (136-145); T4 (THYROXINE) 4.7 mcg/dL (4.7-13.3); THYROID STIMULATING HORMONE 1.58 uIU/mL (0.36-3.74); TOTAL PROTEIN, SERUM 6.3 g/dL (6.4-8.2); TRIGLYCERIDES 133 mg/dL (15-150); UREA NITROGEN, BLOOD 18 mg/dL (7-18)
[2024-11-05 10:15] VITALS: BP 150/95; PULSE 78; RESP 16; O2SAT 100
[2024-11-05 20:30] VITALS: BP 106/75; PULSE 63; RESP 16; TEMP 97.7; O2SAT 99
[2024-11-05] MEDS: OLANZapine 10 MG RAPDIS TABLET PO SCH (20:39)
[2024-11-06 08:06] VITALS: BP 130/90; PULSE 75; RESP 15; TEMP 98.4; O2SAT 100
[2024-11-06] MEDS: ETHYL ALCOHOL 62% ANTISEPTIC NASAL SANITIZER 0.6 ML AMPUL NASAL SCH (09:22)
[2024-11-06] MEDS: CHLORHEXIDINE GLUCONATE 2% TOWELETTE [2'S/6'S] TP SCH (20:06)
[2024-11-06 21:01] VITALS: BP 116/84; PULSE 76; RESP 18; TEMP 98.9; O2SAT 98
[2024-11-07 08:46] VITALS: RESP 18
[2024-11-07 20:11] VITALS: BP 116/83; PULSE 85; RESP 17; TEMP 98; O2SAT 97
[2024-11-08 08:20] VITALS: BP 139/90; PULSE 67; RESP 15; TEMP 97.7; O2SAT 100
[2024-11-08 21:12] VITALS: BP 112/75; PULSE 88; RESP 16; TEMP 97.8; O2SAT 98
[2024-11-09 08:49] VITALS: RESP 18
[2024-11-09 09:13] VITALS: BP 115/79; PULSE 83; RESP 18; TEMP 97.6
[2024-11-09 20:05] VITALS: BP 110/66; PULSE 89; RESP 16; TEMP 98.1; O2SAT 100
[2024-11-10 08:07] VITALS: BP 111/81; PULSE 100; RESP 18; TEMP 98.1; O2SAT 95
[2024-11-10 21:47] VITALS: BP 106/76; PULSE 77; RESP 14; TEMP 98.4; O2SAT 98
[2024-11-11 08:08] VITALS: BP 121/85; PULSE 95; RESP 17; TEMP 98.2; O2SAT 98
[2024-11-11 20:05] VITALS: BP 100/74; PULSE 84; RESP 16; TEMP 98.3; O2SAT 98
[2024-11-12 08:31] VITALS: BP 100/74; PULSE 66; RESP 17; TEMP 97.5; O2SAT 99
[2024-11-12 12:20] VITALS: BP 111/59; PULSE 62; RESP 16; O2SAT 99
[2024-11-12] MEDS: haloperidoL 5 MG TABLET PO PRN (12:24)
[2024-11-12] MEDS ORDERED: LISI-892 PO (15:05)
== END 2024-11-12 17:19 | disposition home or self-care (01) | DRG 750 ==
LOC: B3A 22:32
PROVIDERS: ADMIT Psychiatry & Neurology Psychiatry; ATTEND Psychiatry & Neurology Psychiatry
DX: F20.9 Schizophrenia, unspecified (principal); R45.851 Suicidal ideations; F15.10 Other stimulant abuse, uncomplicated; F41.9 Anxiety disorder, unspecified; Z20.822 Contact with and (suspected) exposure to COVID-19; I10 Essential (primary) hypertension; G47.00 Insomnia, unspecified; K59.00 Constipation, unspecified; F32.A Depression, unspecified; Z72.0 Tobacco use
CPT/HCPCS: 80053; 80061; 83036; 84436; 84443; 85025; 87081; 90732

== ENCOUNTER 2024-12-06 10:21 | Inpatient (IN) | payer MEDICAID ==
[~2024-12-06] VITALS: Ht 170.2 cm; Wt 68.1 kg
[~2024-12-06 10:21] MED LIST changes: -CLON1PAT13 TD; +LISI-892 PO
[2024-12-06 12:30] LABS: GLUCOMETER DEV NAME(LOC) POC.BV; POC SARS-COV2 AG, FIA NEGATIVE (NEGATIVE)
[2024-12-06 14:34] VITALS: BP 149/106; PULSE 89; RESP 18; TEMP 98.7; O2SAT 99
[2024-12-06] MEDS ORDERED: PNEUMOCOCCAL VACCINE POLYVALENT 0.5 ML SYRINGE [PPSV23] IM. ONE (15:00)
[2024-12-06 20:31] VITALS: RESP 17
[2024-12-07 09:15] VITALS: BP 119/81; PULSE 75; RESP 17; TEMP 96.8; O2SAT 98
[2024-12-07] MEDS: TUBERCULIN, PURIFIED PROTEIN DERIVATIVE 5 TU/0.1 ML SYRINGE ID ONE (17:33)
[2024-12-07 20:30] VITALS: BP 127/74; PULSE 98; RESP 18; TEMP 98.5; O2SAT 100
[2024-12-07] MEDS: ZOLPIDEM TARTRATE 10 MG TABLET PO PRN (21:26)
[2024-12-08 08:36] VITALS: BP 100/54; PULSE 81; RESP 16; TEMP 97; O2SAT 100
[2024-12-08] MEDS: VENLAFAXINE HCL 150 MG ER CAPSULE PO SCH (08:47)
[2024-12-08 22:00] VITALS: BP 107/61; PULSE 71; RESP 17; TEMP 97.7; O2SAT 99
[2024-12-09] MEDS ORDERED: LOPERAMIDE HCL 2 MG CAPSULE PO PRN (08:30)
[2024-12-09] MEDS ORDERED: BACITRACIN 28 GM OINTMENT TP PRN (08:30)
[2024-12-09] MEDS ORDERED: ONDANSETRON 4 MG TABLET PO PRN (08:30)
[2024-12-09] MEDS ORDERED: BENZOCAINE/MENTHOL [CEPACOL] LOZENGE PO PRN (08:30)
[2024-12-09] MEDS ORDERED: PETROLATUM,WHITE 28 GM JELLY TP PRN (08:30)
[2024-12-09] MEDS ORDERED: ACETAMINOPHEN 325 MG TABLET PO PRN (08:30)
[2024-12-09] MEDS ORDERED: ALBUTEROL SULFATE HFA 90 MCG/PUFF 8 GM INHALER IH PRN (08:30)
[2024-12-09] MEDS ORDERED: MAG HYDROX/ALUMINUM HYD/SIMETH ES 30 ML SUSPENSION UDCUP PO PRN (08:30)
[2024-12-09] MEDS ORDERED: IBUPROFEN 600 MG TABLET PO PRN (08:30)
[2024-12-09] MEDS ORDERED: OMEPRAZOLE 20 MG CAPSULE PO PRN (08:30)
[2024-12-09] MEDS ORDERED: DOCUSATE SODIUM 100 MG CAPSULE PO PRN (08:30)
[2024-12-09] MEDS ORDERED: MAGNESIUM HYDROXIDE SUSPENSION 30 ML UDCUP PO PRN (08:30)
[2024-12-09 20:27] VITALS: BP 104/71; PULSE 94; RESP 18; TEMP 97.8; O2SAT 98
[2024-12-10 09:11] VITALS: BP 120/79; PULSE 64; RESP 17; TEMP 97.5; O2SAT 99
[2024-12-10 17:40] VITALS: BP 100/70; RESP 17
[2024-12-10 20:38] VITALS: BP 101/70; PULSE 81; RESP 17; TEMP 98.3; O2SAT 99
[2024-12-11 09:11] VITALS: BP 110/66; PULSE 73; RESP 16; TEMP 97.5; O2SAT 100
[2024-12-11] MEDS ORDERED: VENL-68 PO (14:47)
== END 2024-12-11 17:01 | disposition home or self-care (01) | DRG 750 ==
LOC: B2S 11:29
PROVIDERS: ADMIT Psychiatry & Neurology Psychiatry; ATTEND Psychiatry & Neurology Psychiatry
DX: F25.1 Schizoaffective disorder, depressive type (principal); R45.851 Suicidal ideations; Z20.822 Contact with and (suspected) exposure to COVID-19; I10 Essential (primary) hypertension; K59.00 Constipation, unspecified; K21.9 Gastro-esophageal reflux disease without esophagitis; G47.00 Insomnia, unspecified; F15.90 Other stimulant use, unspecified, uncomplicated; F41.0 Panic disorder [episodic paroxysmal anxiety]; Z56.0 Unemployment, unspecified; Z59.02 Unsheltered homelessness; Z91.51 Personal history of suicidal behavior; Z72.89 Other problems related to lifestyle
CPT/HCPCS: 90732; 90749; G0009; Z7610